=== PATIENT | female | born 1970 | race African-American/Black ===

== ENCOUNTER → 2016-12-13 | Outpatient (CLI) | payer OTHER ==
[2016-07-09 18:12] VITALS: BP 149/87
[~2016-12-13] MED LIST: ACET-704 PO; AMLO25PO; CYCL10TA2; FERR325C; FLUT100D; IBUP-1060 PO; OMEP40CA5
--- NOTE | 2016-12-13 12:39 | KCIC ---
PROCEDURE MRI cervical spine without contrast. HISTORY Cervical strain, elevator door closed on patient's left arm June 2016 with continued pain in the neck and left arm TECHNIQUE Sagittal and axial T2, sagittal T1, sagittal STIR images were acquired of the cervical spine. Contrast: None COMPARISON None FINDINGS There is motion degradation. Cervical cord caliber is within normal limits without obvious or expansile signal abnormality, limited evaluation for subtle signal change due to motion artifact. Cervical vertebral body stature and AP alignment are preserved. There is no significant abnormality of the cervical medullary junction, right cerebellar tonsil lower limits of normal. There is no significant focal marrow edema. Intervertebral disc spaces are overall adequate, mild disc desiccation greatest C4-5 to C6-7. C2-3: Spinal canal and the neural foramina are adequate. C3-C4: There is severe facet degenerative change bilaterally. Spinal canal and right neural foramina are adequate. There is left uncovertebral degenerative change, contributes to moderate narrowing of left neural foramen in combination with facet hypertrophic change. C4-C5: There is severe left facet hypertrophic change. Spinal canal and right neural foramen are adequate, mild to moderate narrowing of the left neural foramen. C5-C6: There is broad posterior bulge/protrusion, relatively greater in the lateral recesses bilaterally. Central canal is adequate 11 millimeters, very mild narrowing of the far lateral recesses. There is uncovertebral degenerative change bilaterally. There is mild to moderate left facet hypertrophic change. There is likely least mild narrowing of the neural foramina. C6-7: There is a shallow protrusion eccentric to the left lateral recess. There is [id number] left lateral recess stenosis. There is likely mild narrowing of the left neural foramen, right neural foramen overall adequate. C7-T1: Spinal canal and neural foramina are adequate. There is facet hypertrophic change greater on the right. IMPRESSION 1. Exam is degraded by motion. 2. There is mild to moderate narrowing of the far left lateral recess at C6-7 by protrusion, very mild narrowing of the lateral recesses at C5-C6. 3. Accurate evaluation of the neural foramina is somewhat limited due to motion, suspected neural foramina compromise greatest on the left at C3-4 and C4-5, to a lesser degree bilaterally at C5-C6 and on the left at C6-7. Facet and uncovertebral degenerative change contributes to neural foramina compromise. Electronically signed by: Dequan Escobedo MD (Dec 13, 2016 12:37:39)
== END | disposition home or self-care (01) ==
LOC: KCIC MRI 11:09
PROVIDERS: ATTEND Physical Medicine & Rehabilitation
DX: S16.1XXA Strain of muscle, fascia and tendon at neck level, initial encounter (principal)
CPT/HCPCS: 72141

== ENCOUNTER 2017-03-21 18:48 | Emergency (ER) | payer OTHER ==
[~2017-03-21] VITALS: Ht 175.3 cm; Wt 86.2 kg
[2017-03-21 19:28] VITALS: BP 148/76
[2017-03-21] MEDS ORDERED: FAMOTIDINE 20 MG TABLET. PO ONE (19:45)
[2017-03-21] MEDS ORDERED: HYDROcodone/APAP 5/325MG 1 TAB TABLET PO ONE (19:45)
[2017-03-21] MEDS ORDERED: DEXAMETHASONE SOD PHOS 20 MG/5 ML VIAL. IM ONE (19:45)
[2017-03-21] MEDS ORDERED: cefTRIAXone IM 250 MG VIAL IM ONE (19:45)
[2017-03-21] MEDS ORDERED: diphenhydrAMINE HCL 25 MG CAPSULE PO ONE (19:45)
[2017-03-21] MEDS ORDERED: PRED-220 PO (20:29)
[2017-03-21] MEDS ORDERED: CLIN150C14 PO (20:29)
--- NOTE | 2017-03-21 20:29 | PHYS DOC ---
Past Medical History Past Medical History: Asthma, Endometriosis, GERD, Hypertension, Other Additional Past Medical Histor: fibroids Past Surgical History: , Tubal ligation, Other Additional Past Surgical Histo: hernia repair Alcohol Use: None Drug Use: None Adult General Chief Complaint Chief Complaint: SORE THROAT HPI HPI Patient is a 46 year old female with history of hypertension and endometriosis asthma who presents today with multiple complaints. Patient is complaining of a rash that began a week ago after getting exposed to poison sabrina. She is also complaining of bilateral ear pain and sore throat and would like to be given Rocephin injection. She is also complaining of chronic left knee pain. Patient denies any trauma. Review of Systems Review of Systems Constitutional: Denies fever or chills [] Eyes: Denies change in visual acuity, redness, or eye pain [] HENT: Sore throat and bilateral ear pain Respiratory: Denies cough or shortness of breath [] Cardiovascular: No additional information not addressed in HPI [] GI: Denies abdominal pain, nausea, vomiting, bloody stools or diarrhea [] : Denies dysuria or hematuria [] Musculoskeletal: Chronic left knee pain Integument: rash Neurologic: Denies headache, focal weakness or sensory changes [] Endocrine: Denies polyuria or polydipsia [] Current Medications Current Medications Current Medications Medications (Trade) Dose Ordered Sig/Laura Start Time Stop Time Status Last Admin Dose Admin Acetaminophen/ Hydrocodone Bitart (Lortab 5/325) 1 tab 1X ONCE 03/21/17 19:45 03/21/17 19:46 DC 03/21/17 19:58 1 TAB Ceftriaxone Sodium (Rocephin Im) 250 mg 1X ONCE 03/21/17 19:45 03/21/17 19:46 DC 03/21/17 19:58 250 MG Dexamethasone Sodium Phosphate (Decadron) 10 mg 1X ONCE 03/21/17 19:45 03/21/17 19:46 DC 03/21/17 19:58 10 MG Diphenhydramine HCl (Benadryl) 25 mg 1X ONCE 03/21/17 19:45 03/21/17 19:46 DC 03/21/17 19:58 25 MG Famotidine (Pepcid) 20 mg 1X ONCE 03/21/17 19:45 03/21/17 19:46 DC 03/21/17 19:58 20 MG Allergies Allergies Allergies Coded Allergies Type Severity Reaction Last Updated Verified naproxen Allergy Intermediate "makes my heart hurt" 03/27/14 Yes naproxen sodium Allergy Intermediate "makes my heart hurt" 03/27/14 Yes Penicillins Allergy Unknown 03/27/14 Yes Sulfa (Sulfonamide Antibiotics) Allergy Unknown 03/27/14 Yes erythromycin base Allergy Unknown 03/27/14 Yes fluconazole Allergy Unknown 03/27/14 Yes tetracycline Allergy Unknown 03/27/14 Yes Physical Exam Physical Exam Constitutional: Well developed, well nourished, no acute distress, non-toxic appearance. [] HENT: Normocephalic, atraumatic, bilateral external ears normal, oropharynx moist, no oral exudates, nose normal. [] Bilateral TM are mildly injected. Eyes: PERRLA, EOMI, conjunctiva normal, no discharge. [] Neck: Normal range of motion, no tenderness, supple, no stridor. [] Cardiovascular:Heart rate regular rhythm, no murmur [] Lungs & Thorax: Bilateral breath sounds clear to auscultation [] Abdomen: Bowel sounds normal, soft, no tenderness, no masses, no pulsatile masses. [] Skin: upper tarso was noted for mild amount of erythematous papular rash. Back: No tenderness, no CVA tenderness. [] Extremities: Left knee with no obvious edema and obvious ecchymosis no tenderness on exam. Full range of motion. +2 left pedal pulse. Cap refill less than 2 seconds the left lower extremity. Negative Addy sign and negative Missy's sign negative anterior-posterior drawer sign to the left knee. Neurologic: Alert and oriented X 3, normal motor function, normal sensory function, no focal deficits noted. [] Psychologic: Affect normal, judgement normal, mood normal. [] Current Patient Data Vital Signs Vital Signs Date Time Temp Pulse Resp B/P (MAP) Pulse Ox O2 Delivery O2 Flow Rate FiO2 03/21/17 19:58 18 Room Air 03/21/17 19:28 98.6 90 99 98.6 EKG EKG [] Radiology/Procedures Radiology/Procedures [] Course & Med Decision Making Course & Med Decision Making Pertinent Labs and Imaging studies reviewed. (See chart for details) Patient is in the ED with multiple complaints including a rash from poison sabrina which she requested a steroid injection. She was given Decadron Pepcid and Benadryl. She also has ear infection which she requested Rocephin injection. She has chronic knee pain. I offered her one hydrocodone in the ED. She'll be discharged with tapered dose of prednisone, Benadryl and Pepcid and instructed to follow-up with her PCP. Azithromycin for ear infection and pharyngitis. Dragon Disclaimer Dragon Disclaimer This electronic medical record was generated, in whole or in part, using a voice recognition dictation system. Departure Departure Impression: Primary Impression: Chronic pain of left knee Additional Impressions: Pharyngitis, acute Otitis media Contact dermatitis Disposition: HOME, SELF-CARE Condition: STABLE Referrals: JOHN BELL MD (PCP) follow up with your doctor in one week Patient Instructions: Contact Dermatitis, [id number], Otitis Media, Adult Additional Instructions: You were seen for contact dermatitis rash, chronic knee pain and ear infection. You also had a sore throat. You were treated in the emergency room with Rocephin and Decadron injection. Take the prescribed medicines as ordered. Follow-up with your own doctor in one week. Scripts Miconazole Nitrate (MONISTAT 7) 44 Gm Cmb.pf.crm 44 GM VG DAILY, #7 EACH Prov: JELENA FRANCES APRN 03/21/17 Fluconazole (DIFLUCAN) 150 Mg Tablet 1 TAB PO ONCE, #1 TAB 1 Refill Prov: JELENA FRANCES APRN 03/21/17 Clindamycin Hcl (CLINDAMYCIN HCL) 150 Mg Capsule 3 CAP PO TID, #90 CAP Prov: JELENA FRANCES APRN 03/21/17 Prednisone (PREDNISONE) 10 Mg Tablet 10 MG PO UD for PREDNISONE TAPER, #39 TAB 0 Refills Take 3 tablets by mouth twice a day for 3 days, then take 2 tablets by mouth twice a day for 3 days, then take 1 tablet by mouth twice a day for 3 days, then take 1 tablet by mouth daily x 3 days, then stop. Prov: JELENA FRANCES APRN 03/21/17 Problem Qualifiers Additional Impressions: Pharyngitis, acute Pharyngitis/tonsillitis etiology: unspecified etiology Qualified Codes: J02.9 - Acute pharyngitis, unspecified Otitis media Otitis media type: other nonsuppurative Laterality: bilateral Chronicity: acute Recurrence: not specified as recurrent Qualified Codes: H65.193 - Other acute nonsuppurative otitis media, bilateral Contact dermatitis Contact dermatitis type: unspecified Contact dermatitis trigger: unspecified trigger Qualified Codes: L25.9 - Unspecified contact dermatitis, unspecified cause JELENA FRANCES APRN Mar 21, 2017 20:29
[2017-03-21] MEDS ORDERED: FLUC150T PO (20:37)
[2017-03-21] MEDS ORDERED: MICO44CM VG (20:40)
== END 2017-03-21 20:35 | disposition home or self-care (01) ==
LOC: ER 18:48
DX: G89.29 Other chronic pain (principal); M25.562 Pain in left knee; J02.9 Acute pharyngitis, unspecified; H66.93 Otitis media, unspecified, bilateral; L25.9 Unspecified contact dermatitis, unspecified cause; J45.909 Unspecified asthma, uncomplicated; K21.9 Gastro-esophageal reflux disease without esophagitis; I10 Essential (primary) hypertension; Z98.51 Tubal ligation status; Z98.890 Other specified postprocedural states
CPT/HCPCS: 96372; 99284; J0696; J1100; Q0163

== ENCOUNTER 2017-03-27 16:58 | Emergency (ER) | payer OTHER ==
[~2017-03-27] VITALS: Ht 175.3 cm; Wt 83.9 kg
[~2017-03-27 16:58] MED LIST changes: +CLIN150C14 PO; +FLUC150T PO; +MICO44CM VG; +PRED-220 PO
[2017-03-27 17:15] VITALS: BP 131/78
--- NOTE | 2017-03-27 18:31 | PHYS DOC ---
Past Medical History Past Medical History: Asthma, Endometriosis, GERD, Hypertension, Other Additional Past Medical Histor: fibroids Past Surgical History: , Tubal ligation, Other Additional Past Surgical Histo: hernia repair Alcohol Use: None Drug Use: None Adult General Chief Complaint Chief Complaint: LOWER EXT PAIN [facility] HPI Patient is a 46 year old female resents to the emergency department stating that she was seen here on the eighth. She states that she did not get her prescriptions filled. She states that she may of lost her prescriptions at home. She states that she is having increased knee pain and discomfort with swelling to the medial part of the left knee. Patient states that she has had increased difficulty with ambulation or that she is capable of ambulating around the department with no difficulty. Patient states that she needs to have her antibiotics filled for an upper respiratory infection in which she was provided with she was seen on the eighth. She states that she's been coughing up green colored sputum. Patient denies any fever, chills or any nausea vomiting. She is also complaining of bilateral ear pain and discomfort. Review of Systems Review of Systems Constitutional: Denies fever or chills [] Eyes: Denies change in visual acuity, redness, or eye pain [] HENT: Denies nasal congestion or sore throat. C/o bilateral ear pain Respiratory: cough denies shortness of breath [] Cardiovascular: No additional information not addressed in HPI [] GI: Denies abdominal pain, nausea, vomiting, bloody stools or diarrhea [] : Denies dysuria or hematuria [] Musculoskeletal: Denies back pain or joint pain [] Integument: Denies rash or skin lesions [] Neurologic: Denies headache, focal weakness or sensory changes [] Endocrine: Denies polyuria or polydipsia [] Allergies Allergies Allergies Coded Allergies Type Severity Reaction Last Updated Verified naproxen Allergy Intermediate "makes my heart hurt" 03/27/14 Yes naproxen sodium Allergy Intermediate "makes my heart hurt" 03/27/14 Yes Sulfa (Sulfonamide Antibiotics) Allergy Unknown 03/27/14 Yes erythromycin base Allergy Unknown 03/27/14 Yes fluconazole Allergy Unknown 03/27/14 Yes tetracycline Allergy Unknown 03/27/14 Yes Physical Exam Physical Exam Constitutional: Well developed, well nourished, no acute distress, non-toxic appearance. [] HENT: Normocephalic, atraumatic, bilateral external ears normal, oropharynx moist, no oral exudates, nose normal. Bilateral tympanic membranes appear to be normal. No redness was noted. Eyes: PERRLA, EOMI, conjunctiva normal, no discharge. [] Neck: Normal range of motion, no tenderness, supple, no stridor. [] Cardiovascular:Heart rate regular rhythm, no murmur [] Lungs & Thorax: Bilateral breath sounds clear to auscultation, equal chest expansion noted. Patient was noted to be able to talk in full sentences with no shortness of air difficulty breathing. No coughing noted while patient was in the room waiting for assessment or evaluation. Skin: Warm, dry, no erythema, no rash. [] Back: No tenderness, no CVA tenderness. [] Extremities: Left knee on the medial tenderness, she'll with swelling noted to the medial part of the left knee as well. Patient with tenderness noted to the posterior part of the knee. No cyanosis, no clubbing, ROM intact, no edema. Peripheral pulses 2+ cap refill brisk less than 2 seconds. Neurologic: Alert and oriented X 3, normal motor function, normal sensory function, no focal deficits noted. It was able to ambulate out of the department with a good steady gait no limping noted with the left leg. Psychologic: Affect normal, judgement normal, mood normal. [] Current Patient Data Vital Signs Vital Signs Date Time Temp Pulse Resp B/P (MAP) Pulse Ox O2 Delivery O2 Flow Rate FiO2 03/27/17 17:15 98.3 97 18 98 Room Air 98.3 EKG EKG [] Radiology/Procedures Radiology/Procedures [] Course & Med Decision Making Course & Med Decision Making Pertinent Labs and Imaging studies reviewed. (See chart for details) Attempted to provide assessment to the patient with patient noted to be out of her room and in the bathroom. Patient had ambulated to the bathroom with her about the use of her wheelchair which is sitting in the room. After patient had returned to the room the provider went in to assess the patient. Patient started off a conversation with the provider as been having increased knee pain and discomfort. She states that I am an descendent and that I him here because I am having pain and discomfort here I am not a drug seeker. Patient was informed that unless anything is broken every patient is treated the same across the board with nonsteroidal anti-inflammatories. Patient was instructed that we will provide her with a knee x-ray. She states I have an appointment with her primary care physician on Saturday and refuses to have a knee x-ray. She then states that I need to be treated for an upper respiratory infection. She states that she is having bilateral ear pain and discomfort. Assessment was completed with bilateral ears being normal. Patient states there is nowhere them I ears can be normal as I did not get any of my antibiotics filled. Explained to patient that ear infections can be considered a viral infection that they don't always need to have antibiotics to clear them. Patient's breath sounds were clear. After explaining to patient that we would get a chest x-ray she states that she is coughing up green to yellow color sputum patient states that the provider has a poor attitude she does not want a chest x-ray and she is leaving. She continues to state that she does not like her care here and proceeds to provide negative comments toward the provider. And then comes up to the nursing station and is asking for a comment form as she wants to provide negative comments to the provider as she does not feel that she was taking care of appropriately here in the emergency department. Patient left AGAINST MEDICAL ADVICE. After patient had left AGAINST MEDICAL ADVICE patient was K-trac to find that on 02/26 from her primary care physician she had had 90 tablets of hydrocodone filled as well as 240 tablets of tramadol filled. It appears that this is normally filled on a monthly basis since 05/2016. Dragon Disclaimer Dragon Disclaimer This electronic medical record was generated, in whole or in part, using a voice recognition dictation system. Departure Departure Impression: Primary Impression: Left against medical advice Disposition: AGAINST MEDICAL ADVICE Condition: STABLE Referrals: JOHN BELL MD (PCP) KIMBERLEY CARTER APRN Mar 27, 2017 18:30
== END 2017-03-27 18:15 | disposition left against medical advice (07) ==
LOC: ER 16:58
DX: M25.562 Pain in left knee (principal); H92.03 Otalgia, bilateral; R05 Cough; M79.89 Other specified soft tissue disorders; I10 Essential (primary) hypertension; J45.909 Unspecified asthma, uncomplicated; K21.9 Gastro-esophageal reflux disease without esophagitis; Z98.51 Tubal ligation status; Z88.2 Allergy status to sulfonamides; Z88.1 Allergy status to other antibiotic agents
CPT/HCPCS: 99281

== ENCOUNTER 2017-07-16 13:42 | Emergency (ER) | payer OTHER ==
[~2017-07-16] VITALS: Ht 172.7 cm; Wt 79.4 kg
--- NOTE | 2017-07-16 14:30 | PHYS DOC ---
Past Medical History Past Medical History: Asthma, Endometriosis, GERD, Hypertension, Other Additional Past Medical Histor: fibroids Past Surgical History: , Tubal ligation, Other Additional Past Surgical Histo: hernia, D&Cx3 Alcohol Use: None Drug Use: Marijuana Adult General Chief Complaint Chief Complaint: VAGINAL BLEEDING HPI HPI Patient is a 46 year old female who presents with vaginal bleeding. Patient reportedly has been bleeding for 8 days. She started her normal menstrual cycle last Saturday, had a Depo-Provera shot on Saturday and within the last 2 days has had significantly increased vaginal bleeding with abdominal cramping. Patient states she has a history of menorrhagia with anemia and required blood transfusions and a D&C in the past. She recently was on control pills prior to reinitiating the Depo-Provera this last week. She is attempted ibuprofen and Tylenol home without an troll of her symptoms. She states she feels weak and dizzy when she gets up. She does not have a primary environmental resource specialist. Review of Systems Review of Systems Constitutional: Denies fever or chills [] Eyes: Denies change in visual acuity, redness, or eye pain [] HENT: Denies nasal congestion or sore throat [] Respiratory: Denies cough or shortness of breath [] Cardiovascular: Per history of present illness GI: Deniesnausea, vomiting, bloody stools or diarrhea [] : Denies dysuria or hematuria [] Musculoskeletal: Denies back pain or joint pain [] Integument: Denies rash or skin lesions [] Neurologic: Denies headache, focal weakness or sensory changes [] Current Medications Current Medications Current Medications Medications (Trade) Dose Ordered Sig/Laura Start Time Stop Time Status Last Admin Dose Admin Acetaminophen/ Hydrocodone Bitart (Lortab 5/325) 1 tab 1X ONCE 07/16/17 15:45 07/16/17 15:46 DC 07/16/17 15:24 1 TAB Ketorolac Tromethamine (Toradol) 30 mg 1X ONCE 07/16/17 15:00 07/16/17 15:01 DC 07/16/17 14:46 30 MG Potassium Chloride (Klor-Con) 40 meq 1X ONCE 07/16/17 16:15 07/16/17 16:16 Allergies Allergies Allergies Coded Allergies Type Severity Reaction Last Updated Verified naproxen Allergy Intermediate "makes my heart hurt" 03/27/14 Yes naproxen sodium Allergy Intermediate "makes my heart hurt" 03/27/14 Yes Sulfa (Sulfonamide Antibiotics) Allergy Unknown 03/27/14 Yes erythromycin base Allergy Unknown 03/27/14 Yes fluconazole Allergy Unknown 03/27/14 Yes tetracycline Allergy Unknown 03/27/14 Yes Physical Exam Physical Exam Constitutional: Well developed, well nourished, mild acute distress secondary to pain I she picked up that nosebleed not to drink she'll, non-toxic appearance. [] HENT: Normocephalic, atraumatic, bilateral external ears normal, oropharynx moist, no oral exudates, nose normal. [] Eyes: PERRLA, EOMI, conjunctiva normal, no discharge. [] Neck: Normal range of motion, no tenderness, supple, no stridor. [] Cardiovascular:Heart rate tachycardic with regular rhythm, no murmur [] Lungs & Thorax: Bilateral breath sounds clear to auscultation, no wheeze or crackles Abdomen: Bowel sounds normal, soft, no tenderness, no masses, no pulsatile masses. : moderate vaginal bleeding, diffuse TTP, mild clots, closed cervix, CMT noted , no adnexal mass, no other discharge Skin: Warm, dry, no erythema, no rash. [] Back: No tenderness, no CVA tenderness. [] Extremities: No tenderness, no cyanosis, no clubbing, ROM intact, no edema. [] Neurologic: Alert and oriented X 3, normal motor function, normal sensory function, no focal deficits noted. [] Psychologic: Affect normal, judgement normal, mood normal. [] Current Patient Data Vital Signs Vital Signs Date Time Temp Pulse Resp B/P (MAP) Pulse Ox O2 Delivery O2 Flow Rate FiO2 07/16/17 15:24 20 Room Air 07/16/17 13:45 98.5 92 163/91 (115) 99 98.5 Lab Values Laboratory Tests Test 07/16/17 14:40 07/16/17 14:55 White Blood Count 11.0 x10^3/uL (4.0-11.0) Red Blood Count 4.14 x10^6/uL (3.50-5.40) Hemoglobin 10.6 g/dL (12.0-15.5) L Hematocrit 31.5 % (36.0-47.0) L Mean Corpuscular Volume 76 fL (79-100) L Mean Corpuscular Hemoglobin 26 pg (25-35) Mean Corpuscular Hemoglobin Concent 34 g/dL (31-37) Red Cell Distribution Width 21.0 % (11.5-14.5) H Platelet Count 369 x10^3/uL (140-400) Neutrophils (%) (Auto) 53 % (31-73) Lymphocytes (%) (Auto) 39 % (24-48) Monocytes (%) (Auto) 5 % (0-9) Eosinophils (%) (Auto) 3 % (0-3) Basophils (%) (Auto) 1 % (0-3) Neutrophils # (Auto) 5.8 x10^3uL (1.8-7.7) Lymphocytes # (Auto) 4.3 x10^3/uL (1.0-4.8) Monocytes # (Auto) 0.5 x10^3/uL (0.0-1.1) Eosinophils # (Auto) 0.3 x10^3/uL (0.0-0.7) Basophils # (Auto) 0.1 x10^3/uL (0.0-0.2) Platelet Estimate Pending Sodium Level 142 mmol/L (136-145) Potassium Level 2.8 mmol/L (3.5-5.1) *L Chloride Level 103 mmol/L (98-107) Carbon Dioxide Level 28 mmol/L (21-32) Anion Gap 11 (6-14) Blood Urea Nitrogen 12 mg/dL (7-20) Creatinine 0.7 mg/dL (0.6-1.0) Estimated GFR (Cockcroft-Gault) 109.0 Glucose Level 124 mg/dL (70-99) H Calcium Level 9.9 mg/dL (8.5-10.1) POC Urine HCG, Qualitative Hcg negative (Negative) Laboratory Tests 07/16/17 14:40 Laboratory Tests 07/16/17 14:40 EKG EKG [] Radiology/Procedures Radiology/Procedures [] Course & Med Decision Making Course & Med Decision Making Pertinent Labs and Imaging studies reviewed. (See chart for details) Labs/ua ordered, IV toradol given for pain. Hgb not significantly low. Pt has hypokalemia and PO KCL 40meq given. Explained to pt the need to f/u with CONTINUITY CLERK, referred to Dr. Adler. Pt dc'c with ethynodiol/ethinyl estradiol for her menorrhagia, ibuprofen and few norco, instructed not to drive or operate machinery, explained low potassium and diet she should follow, return precautions given. Dragon Disclaimer Dragon Disclaimer This electronic medical record was generated, in whole or in part, using a voice recognition dictation system. Departure Departure Impression: Primary Impression: Dysfunctional uterine bleeding Additional Impression: Hypokalemia Disposition: HOME, SELF-CARE Condition: STABLE Referrals: JOHN BELL MD (PCP) Scripts Hydrocodone/Apap 5-325 (NORCO 5-325 TABLET) 1 Each Tablet 1-2 EACH PO PRN Q6HRS Y for breakthrough pain, #10 as needed for pain Prov: GILL SALGADO MD 07/16/17 Ibuprofen (IBUPROFEN) 600 Mg Tablet 600 MG PO PRN Q6HRS Y for PAIN, #20 TAB take with food or milk Prov: GILL SALGADO MD 07/16/17 Ethynodiol D-Ethinyl Estradiol (ZOVIA 1-35E) 1 Each Tablet 1 TAB PO DAILY Y for uterine bleeding, #28 TAB 0 Refills Prov: GILL SALGADO MD 07/16/17 Problem Qualifiers GILL SALGADO MD Jul 16, 2017 14:30
[2017-07-16 14:52] LABS: BASO # 0.1 x10^3/uL (0.0-0.2); BASO % 1 % (0-3); EOS % 3 % (0-3); HEMATOCRIT 31.5 % (36.0-47.0); HEMOGLOBIN 10.6 g/dL (12.0-15.5); LYMPH # 4.3 x10^3/uL (1.0-4.8); LYMPH % 39 % (24-48); MEAN CORPUSCULAR HEMOGLOBIN 26 pg (25-35); MEAN CORPUSCULAR HGB CONC 34 g/dL (31-37); MEAN CORPUSCULAR VOLUME 76 fL (79-100); MONO % 5 % (0-9); NEUT % 53 % (31-73); PLATELET COUNT 369 x10^3/uL (140-400); RED BLOOD COUNT 4.14 x10^6/uL (3.50-5.40)
[2017-07-16 15:00] LABS: CALCIUM 9.9 mg/dL (8.5-10.1); CREATININE 0.7 mg/dL (0.6-1.0)
[2017-07-16] MEDS ORDERED: KETOROLAC 30 MG/ML INJ. IV ONE (15:00)
[2017-07-16 15:11] LABS: POTASSIUM 2.8 mmol/L (3.5-5.1)
[2017-07-16] MEDS ORDERED: HYDROcodone/APAP 5/325MG 1 TAB TABLET PO ONE (15:45)
[2017-07-16] MEDS ORDERED: IBUP-1007 PO (15:52)
[2017-07-16] MEDS ORDERED: HYDR-971 PO (15:52)
[2017-07-16] MEDS ORDERED: ETHY1TAB2 PO (15:52)
[2017-07-16 15:54] LABS: ANISOCYTOSIS MOD; PLT ESTIMATE ADEQUATE (ADEQUATE)
[2017-07-16 16:07] VITALS: BP 140/85
[2017-07-16] MEDS ORDERED: POTASSIUM CHLORIDE 20 MEQ TABLET.ER. PO ONE (16:15)
== END 2017-07-16 16:19 | disposition home or self-care (01) ==
LOC: ER 13:42
DX: N93.8 Other specified abnormal uterine and vaginal bleeding (principal); E87.6 Hypokalemia; K21.9 Gastro-esophageal reflux disease without esophagitis; J45.909 Unspecified asthma, uncomplicated; I10 Essential (primary) hypertension; Z98.51 Tubal ligation status; Z79.899 Other long term (current) drug therapy; Z88.8 Allergy status to other drugs, medicaments and biological substances; Z88.1 Allergy status to other antibiotic agents
CPT/HCPCS: 36415; 80048; 81025; 85025; 96374; 99284; J1885

== ENCOUNTER 2017-08-05 16:54 | Emergency (ER) | payer OTHER ==
[~2017-08-05] VITALS: Ht 175.3 cm; Wt 75.3 kg
[~2017-08-05 16:54] MED LIST changes: +ETHY1TAB2 PO; +HYDR-971 PO; +IBUP-1007 PO
[2017-08-05 17:05] VITALS: BP 128/81
--- NOTE | 2017-08-05 17:25 | PHYS DOC ---
Past Medical History Past Medical History: Asthma, Endometriosis, GERD, Hypertension, Other Additional Past Medical Histor: fibroids Past Surgical History: , Tubal ligation, Other Additional Past Surgical Histo: hernia, D&Cx3 Alcohol Use: None Drug Use: Marijuana Adult General Chief Complaint Chief Complaint: KNEE INJURY HPI HPI Patient is a 46 year old female with a history of endometriosis, hypertension, who presents today complaining of moderate left knee pain that began today. Patient states she was trying to get in her is CVA when she heat her knee on the SUV. Patient states the pain is worse on ambulation. The knee is already wrapped in an Teodoro wrap. Review of Systems Review of Systems Constitutional: Denies fever or chills [] Eyes: Denies change in visual acuity, redness, or eye pain [] HENT: Denies nasal congestion or sore throat [] Respiratory: Denies cough or shortness of breath [] Cardiovascular: No additional information not addressed in HPI [] GI: Denies abdominal pain, nausea, vomiting, bloody stools or diarrhea [] : Denies dysuria or hematuria [] Musculoskeletal: Left anterior knee pain Integument: Denies rash or skin lesions [] Neurologic: Denies headache, focal weakness or sensory changes [] Current Medications Current Medications Current Medications Medications (Trade) Dose Ordered Sig/Laura Start Time Stop Time Status Last Admin Dose Admin Acetaminophen/ Hydrocodone Bitart (Lortab 5/325) 2 tab 1X ONCE 08/05/17 17:45 08/05/17 17:46 DC 08/05/17 17:40 2 TAB Dexamethasone Sodium Phosphate (Decadron) 10 mg 1X ONCE 08/05/17 17:45 08/05/17 17:46 DC 08/05/17 17:41 10 MG Allergies Allergies Allergies Coded Allergies Type Severity Reaction Last Updated Verified naproxen Allergy Intermediate "makes my heart hurt" 03/27/14 Yes naproxen sodium Allergy Intermediate "makes my heart hurt" 03/27/14 Yes Sulfa (Sulfonamide Antibiotics) Allergy Unknown 03/27/14 Yes erythromycin base Allergy Unknown 03/27/14 Yes fluconazole Allergy Unknown 03/27/14 Yes tetracycline Allergy Unknown 03/27/14 Yes Physical Exam Physical Exam Constitutional: Well developed, well nourished, no acute distress, non-toxic appearance. [] HENT: Normocephalic, atraumatic, bilateral external ears normal, oropharynx moist, no oral exudates, nose normal. [] Eyes: PERRLA, EOMI, conjunctiva normal, no discharge. [] Neck: Normal range of motion, no tenderness, supple, no stridor. [] Cardiovascular:Heart rate regular rhythm, no murmur [] Lungs & Thorax: Bilateral breath sounds clear to auscultation [] Abdomen: Bowel sounds normal, soft, no tenderness, no masses, no pulsatile masses. [] Skin: Warm, dry, no erythema, no rash. [] Back: No tenderness, no CVA tenderness. [] Extremities: Left knee with no obvious deformity. Small amount of soft tissue swelling noted on the left knee. Tenderness on palpation of the anterior left knee. Full range of motion of the left knee, negative Addy sign and negative Missy's sign negative anterior-posterior drawer sign to the left knee. +2 left pedal pulse. Cap refill less than 2 seconds the left toes. Neurologic: Alert and oriented X 3, normal motor function, normal sensory function, no focal deficits noted. [] Psychologic: Affect normal, judgement normal, mood normal. [] Current Patient Data Vital Signs Vital Signs Date Time Temp Pulse Resp B/P (MAP) Pulse Ox O2 Delivery O2 Flow Rate FiO2 08/05/17 17:40 18 97 Room Air 08/05/17 17:05 98.0 96 98.0 EKG EKG [] Radiology/Procedures Radiology/Procedures [] Course & Med Decision Making Course & Med Decision Making Pertinent Labs and Imaging studies reviewed. (See chart for details) Patient is in the ED with complaints of left knee pain after she hit it. Left knee x-rays interpreted by Dr. Stern are negative for any acute findings. She already has an Teodoro wrap on her left knee. She was instructed to keep the Teodoro wrap on. Ice elevation encouraged. Discharged with Medrol Dosepak and Tylenol 3. She was asking for hydrocodone's. Informed patient I do not have any indication for giving her hydrocodone. She is allergic to NSAIDs. Informed her she can follow up with an orthopedic doctor which I provided if she wants anything stronger for pain. She requested to be treated for STDs. She is in the ED with a partner and states the source of her current STD is not the current partner and does not want the partner informed. She was given Rocephin and azithromycin and Flagyl. Encouraged her to contact all [facility] and let them know she was treated for STDs and ask them to seek treatment too. Sylwia Disclaimer Sylwia Disclaimer This electronic medical record was generated, in whole or in part, using a voice recognition dictation system. Departure Departure Impression: Primary Impression: Contusion of left knee Disposition: HOME, SELF-CARE Condition: STABLE Referrals: UNKNOWN PCP NAME (PCP) KENNETH LEI MD follow up in one week Patient Instructions: Contusion, [id number] Additional Instructions: You were seen for left knee contusion. Continue wearing the Teodoro wrap you have as tolerated. Ice and elevate the extremity. Follow-up with the provided orthopedic doctor in one week. Follow-up with your own doctor as well. Scripts Methylprednisolone (MEDROL) 4 Mg Tab.ds.pk 1 PKG PO UD, #1 PKG Prov: JELENA FRANCES APRN 08/05/17 Acetaminophen With Codeine (TYLENOL WITH CODEINE #3 TABLET) 1 Each Tablet 1 TAB PO PRN Q6HRS Y for PAIN, #10 TAB Prov: JELENA FRANCES APRN 08/05/17 Problem Qualifiers Primary Impression: Contusion of left knee Encounter type: initial encounter Qualified Codes: S80.02XA - Contusion of left knee, initial encounter JELENA FRANCES APRN Aug 05, 2017 17:25
[2017-08-05] MEDS ORDERED: HYDROcodone/APAP 5/325MG 1 TAB TABLET PO ONE (17:45)
[2017-08-05] MEDS ORDERED: DEXAMETHASONE SOD PHOS 20 MG/5 ML VIAL. IM ONE (17:45)
[2017-08-05] MEDS ORDERED: METH4TAB2 PO (17:53)
[2017-08-05] MEDS ORDERED: ACET-704 PO (17:53)
[2017-08-05] MEDS ORDERED: metroNIDAZOLE 500 MG TABLET PO ONE (18:15)
[2017-08-05] MEDS ORDERED: cefTRIAXone IM 250 MG VIAL IM ONE (18:15)
[2017-08-05] MEDS ORDERED: AZITHROMYCIN 250 MG TABLET. PO ONE (18:15)
--- NOTE | 2017-08-06 08:42 | RAD ---
Left knee, 4 views, 08/05/2017: History: Fall, pain There is moderate narrowing of the medial compartment of the knee joint with subchondral sclerosis and moderate marginal spurring. There are also moderate degenerative changes at the patellofemoral articulation. No acute fracture or dislocation is identified. There is a large joint effusion. There is subcutaneous edema anteriorly. IMPRESSION: 1. Moderate degenerative change. 2. Large knee joint effusion. 3. No acute bony abnormality is detected. If knee pain persists, follow-up MR scanning may be useful in excluding an occult fracture or internal derangement, considering the presence of a large joint effusion.
== END 2017-08-05 18:00 | disposition home or self-care (01) ==
LOC: ER 16:54
DX: S80.02XA Contusion of left knee, initial encounter (principal); J45.909 Unspecified asthma, uncomplicated; I10 Essential (primary) hypertension; K21.9 Gastro-esophageal reflux disease without esophagitis; Z98.51 Tubal ligation status; Z88.1 Allergy status to other antibiotic agents; Z88.2 Allergy status to sulfonamides; Z88.6 Allergy status to analgesic agent; Z88.8 Allergy status to other drugs, medicaments and biological substances; X58.XXXA Exposure to other specified factors, initial encounter; Y93.89 Activity, other specified; Y99.8 Other external cause status; Y92.89 Other specified places as the place of occurrence of the external cause
CPT/HCPCS: 73564; 96372; 99284; J0696; J1100; Q0144

== ENCOUNTER 2018-03-13 07:57 | Emergency (ER) | payer SELFPAY, OTHER ==
[2018-03-13 08:21] LABS: URINE HCG POC HCG NEGATIVE (Negative)
[2018-03-13 08:38] LABS: BILIRUBIN,URINE NEGATIVE (NEG); CLARITY,URINE CLEAR; COLOR,URINE YELLOW; GLUCOSE,URINE NEGATIVE (NEG); NITRITE,URINE POSITIVE (NEG); PH,URINE 6.5; PROTEIN,URINE 30 mg/dL (NEG-TRACE)
[2018-03-13] MEDS: IV NORMAL SALINE 1000ML BAG 1,000 ML IV (08:43)
[2018-03-13 08:53] LABS: ADD MAN DIFF? NO
[2018-03-13 08:56] LABS: BASO # 0.1 x10^3/uL (0.0-0.2); BASO % 1 % (0-3); EOS # 0.2 x10^3/uL (0.0-0.7); EOS % 2 % (0-3); HEMATOCRIT 28.6 % (36.0-47.0); LYMPH # 2.1 x10^3/uL (1.0-4.8); LYMPH % 18 % (24-48); MEAN CORPUSCULAR HEMOGLOBIN 28 pg (25-35); MEAN CORPUSCULAR HGB CONC 35 g/dL (31-37); MEAN CORPUSCULAR VOLUME 80 fL (79-100); MONO # 0.9 x10^3/uL (0.0-1.1); MONO % 7 % (0-9); NEUT # 8.7 x10^3uL (1.8-7.7); NEUT % 73 % (31-73); PLATELET COUNT 452 x10^3/uL (140-400); RED BLOOD COUNT 3.57 x10^6/uL (3.50-5.40); RED CELL DISTRIBUTION WIDTH 17.9 % (11.5-14.5); WHITE BLOOD COUNT 11.9 x10^3/uL (4.0-11.0)
[2018-03-13] MEDS: ONDANSETRON PF 4 MG/2 ML VIAL. IV (08:56)
[2018-03-13] MEDS: ACETAMINOPHEN 500 MG TABLET PO (08:56)
[2018-03-13 09:10] LABS: BACTERIA,URINE MANY /HPF (0-FEW); RBC,URINE 0 /HPF (0-2); SQUAMOUS EPITHELIAL CELL,UR MOD /LPF; WBC,URINE >40 /HPF (0-4)
[2018-03-13 09:11] LABS: ETHANOL < 10 mg/dL (0-10)
[2018-03-13 09:18] LABS: LACTIC ACID 0.6 mmol/L (0.4-2.0)
[2018-03-13 09:24] LABS: ALBUMIN 3.6 g/dL (3.4-5.0); ALBUMIN/GLOBULIN RATIO 0.8 (1.0-1.7); ALK PHOS 103 U/L (46-116); ALT (SGPT) 18 U/L (14-59); ANION GAP 10 (6-14); AST (SGOT) 14 U/L (15-37); BLOOD UREA NITROGEN 6 mg/dL (7-20); BUN/CREATININE RATIO 12 (6-20); CALCIUM 9.5 mg/dL (8.5-10.1); CARBON DIOXIDE 29 mmol/L (21-32); CHLORIDE 99 mmol/L (98-107); CREATININE 0.5 mg/dL (0.6-1.0); GLUCOSE 91 mg/dL (70-99); LIPASE 63 U/L (73-393); SODIUM 138 mmol/L (136-145); TOTAL BILIRUBIN 0.5 mg/dL (0.2-1.0); TOTAL PROTEIN 7.9 g/dL (6.4-8.2)
[2018-03-13 09:26] LABS: POTASSIUM 2.9 mmol/L (3.5-5.1)
[2018-03-13] MEDS: AZITHROMYCIN 250 MG TABLET. PO (09:36)
[2018-03-13] MEDS: metroNIDAZOLE 500 MG TABLET PO (09:36)
[2018-03-13] MEDS: POTASSIUM CHLORIDE 20 MEQ TABLET.ER. PO (09:38)
[2018-03-13 10:03] LABS: PROCALCITONIN 0.19 ng/mL (0.00-0.10)
[2018-03-13 10:08] LABS: AMPHETAMINE/METHAMPHETAMINE NEG (NEG); BARBITURATES NEG (NEG); BENZODIAZEPINES NEG (NEG); CANNABINOIDS POS (NEG); COCAINE POS (NEG); METHADONE NEG (NEG); OPIATES POS (NEG); PHENCYCLIDINE NEG (NEG)
[2018-03-13 10:09] LABS: ETHANOL, URINE NEG (NEG)
[2018-03-13 10:13] LABS: NEGATIVE OBC STREP NEG; POSITIVE OBC STREP POS
[2018-03-13] MEDS: KETOROLAC 30 MG/ML INJ. IV (10:22)
[2018-03-13] MEDS: methylPREDNISolone SOD SUCC PF 125 MG/2 ML VIAL. IV (10:22)
== END 2018-03-13 11:05 | disposition home or self-care (01) ==
LOC: ER 11:05
DX: N39.0 Urinary tract infection, site not specified (principal); E87.6 Hypokalemia; R21 Rash and other nonspecific skin eruption; H92.01 Otalgia, right ear; J45.909 Unspecified asthma, uncomplicated; K21.9 Gastro-esophageal reflux disease without esophagitis; I10 Essential (primary) hypertension; Z88.1 Allergy status to other antibiotic agents; Z88.8 Allergy status to other drugs, medicaments and biological substances
CPT/HCPCS: 36415; 71045; 80053; 80307; 81001; 81025; 83605; 83690; 84145; 85025; 87070; 87086; 87186; 87491; 87591; 87880; 96365; 96375; 99285-25; G0480; J0690; J1885; J2405; J2930; J7030; Q0144

== ENCOUNTER 2018-03-17 20:11 | Emergency (ER) | payer SELFPAY ==
[2018-03-17 20:24] LABS: BILIRUBIN,URINE NEGATIVE (NEG); CLARITY,URINE CLOUDY; COLOR,URINE YELLOW; GLUCOSE,URINE NEGATIVE (NEG); NITRITE,URINE NEGATIVE (NEG); PH,URINE 6.5; PROTEIN,URINE NEGATIVE (NEG-TRACE); UROBILINOGEN,URINE 0.2 mg/dL (0.2 mg/dL)
[2018-03-17 20:48] LABS: BACTERIA,URINE MOD /HPF (0-FEW); RBC,URINE 0 /HPF (0-2); SQUAMOUS EPITHELIAL CELL,UR MANY /LPF; YEAST,URINE PRESENT /HPF
[2018-03-17] MEDS: cefTRIAXone IM 1 GM VIAL IM ×2 (20:57→21:00)
== END 2018-03-17 21:10 | disposition home or self-care (01) ==
LOC: ER 20:11
DX: R30.0 Dysuria (principal); I10 Essential (primary) hypertension; Z98.51 Tubal ligation status; Z76.0 Encounter for issue of repeat prescription; Z90.89 Acquired absence of other organs
CPT/HCPCS: 81001; 96372; 99283; J0696

== ENCOUNTER 2018-04-23 16:09 | Emergency (ER) | payer SELFPAY ==
[2018-04-23 16:52] LABS: URINE HCG POC HCG NEGATIVE (Negative)
[2018-04-23 16:55] LABS: BILIRUBIN,URINE NEGATIVE (NEG); CLARITY,URINE CLEAR; COLOR,URINE YELLOW; GLUCOSE,URINE NEGATIVE (NEG); NITRITE,URINE NEGATIVE (NEG); PH,URINE 5.5; PROTEIN,URINE NEGATIVE (NEG-TRACE); UROBILINOGEN,URINE 0.2 mg/dL (0.2 mg/dL)
[2018-04-23 17:11] LABS: BACTERIA,URINE 0 /HPF (0-FEW); HYALINE CASTS, URINE MANY /HPF; RBC,URINE 0 /HPF (0-2); SQUAMOUS EPITHELIAL CELL,UR FEW /LPF
[2018-04-23] MEDS: AZITHROMYCIN 250 MG TABLET. PO (18:07)
[2018-04-23] MEDS: cefTRIAXone IM 250 MG VIAL IM (18:08)
[2018-04-23] MEDS: KETOROLAC 60 MG/2 ML INJ. IM (19:14)
[2018-04-23] MEDS: DEXAMETHASONE SOD PHOS 4 MG/ML VIAL IM (19:28)
[2018-04-24 15:31] LABS: CHLAMYDIA PROBE Negative (Negative); GC PROBE Negative (Negative)
== END 2018-04-23 19:45 | disposition home or self-care (01) ==
LOC: ER 16:09
DX: J06.9 Acute upper respiratory infection, unspecified (principal); N76.0 Acute vaginitis; B96.89 Other specified bacterial agents as the cause of diseases classified elsewhere; H92.03 Otalgia, bilateral; I10 Essential (primary) hypertension; Z98.51 Tubal ligation status; Z20.2 Contact with and (suspected) exposure to infections with a predominantly sexual mode of transmission; Z88.2 Allergy status to sulfonamides; Z88.1 Allergy status to other antibiotic agents; Z88.8 Allergy status to other drugs, medicaments and biological substances
CPT/HCPCS: 71046; 81001; 81025; 87086; 87491; 87591; 96372; 99285-25; J0696; J1100; J1885; Q0111; Q0144

== ENCOUNTER 2018-05-19 15:32 | Emergency (ER) | payer SELFPAY ==
[2018-05-19 17:01] LABS: BILIRUBIN,URINE NEGATIVE (NEG); CLARITY,URINE CLEAR; COLOR,URINE YELLOW; GLUCOSE,URINE NEGATIVE (NEG); NITRITE,URINE NEGATIVE (NEG); PROTEIN,URINE NEGATIVE (NEG-TRACE); UROBILINOGEN,URINE 0.2 mg/dL (0.2 mg/dL)
[2018-05-19 17:03] LABS: BARBITURATES NEG (NEG); BENZODIAZEPINES NEG (NEG); CANNABINOIDS POS (NEG); COCAINE NEG (NEG); METHADONE NEG (NEG); OPIATES POS (NEG); PHENCYCLIDINE NEG (NEG)
[2018-05-19 17:04] LABS: BACTERIA,URINE MANY /HPF (0-FEW); WBC,URINE >40 /HPF (0-4)
[2018-05-19 17:05] LABS: RBC,URINE OCC /HPF (0-2); SQUAMOUS EPITHELIAL CELL,UR FEW /LPF
[2018-05-19 17:07] LABS: AMPHETAMINE/METHAMPHETAMINE NEG (NEG); ETHANOL, URINE NEG (NEG)
[2018-05-19] MEDS: methylPREDNISolone SOD SUCC PF 125 MG/2 ML VIAL. IM (17:09)
[2018-05-19] MEDS: cefTRIAXone IM 1 GM VIAL IM (17:09)
[2018-05-19] MEDS: LIDOCAINE 1% PF 2 ML VIAL. INJ (17:09)
[2018-05-19] MEDS: diphenhydrAMINE HCL 25 MG CAPSULE PO (17:11)
[2018-05-19] MEDS: DOXYCYCLINE HYCLATE 100 MG TABLET PO (17:11)
[2018-05-19] MEDS: AZITHROMYCIN 250 MG TABLET. PO (17:11)
[2018-05-19] MEDS: HYDROcodone/APAP 7.5/325MG 1 TAB TABLET PO (17:12)
[2018-05-19] MEDS: metroNIDAZOLE 500 MG TABLET PO (17:38)
[2018-05-20 14:35] LABS: CHLAMYDIA PROBE Negative (Negative); GC PROBE Negative (Negative)
== END 2018-05-19 18:11 | disposition home or self-care (01) ==
LOC: ER 15:32
DX: N39.0 Urinary tract infection, site not specified (principal); N76.0 Acute vaginitis; B96.89 Other specified bacterial agents as the cause of diseases classified elsewhere; L25.9 Unspecified contact dermatitis, unspecified cause; K21.9 Gastro-esophageal reflux disease without esophagitis; I10 Essential (primary) hypertension; F17.210 Nicotine dependence, cigarettes, uncomplicated; Z20.2 Contact with and (suspected) exposure to infections with a predominantly sexual mode of transmission; Z90.89 Acquired absence of other organs; Z98.51 Tubal ligation status; Z88.2 Allergy status to sulfonamides; Z88.1 Allergy status to other antibiotic agents; Z88.5 Allergy status to narcotic agent; Z88.8 Allergy status to other drugs, medicaments and biological substances
CPT/HCPCS: 80307; 81001; 87491; 87591; 96372; 99284; J0696; J2930; Q0111; Q0144; Q0163

== ENCOUNTER 2018-06-10 16:50 | Emergency (ER) | payer SELFPAY ==
[~2018-06-10] VITALS: Ht 175.3 cm; Wt 79.4 kg
[~2018-06-10 16:50] MED LIST changes: +CEPH500T PO; +DOXY100T PO; +DOXY100T9 PO; +METH4TAB2 PO; +METR500T PO; +METR70GE14 VG; +MICO1KIT8 VG; +MICO45CR3 VG; +ONDA4TAB10 SL; +PRED50TA PO
[2018-06-10 17:27] LABS: BASO % 1 % (0-3); EOS # 0.1 x10^3/uL (0.0-0.7); EOS % 2 % (0-3); HEMATOCRIT 33.5 % (36.0-47.0); HEMOGLOBIN 11.5 g/dL (12.0-15.5); LYMPH # 1.2 x10^3/uL (1.0-4.8); LYMPH % 31 % (24-48); MEAN CORPUSCULAR HEMOGLOBIN 28 pg (25-35); MEAN CORPUSCULAR HGB CONC 34 g/dL (31-37); MEAN CORPUSCULAR VOLUME 82 fL (79-100); MONO # 0.3 x10^3/uL (0.0-1.1); MONO % 7 % (0-9); NEUT # 2.2 x10^3uL (1.8-7.7); NEUT % 58 % (31-73); PLATELET COUNT 352 x10^3/uL (140-400); RED BLOOD COUNT 4.09 x10^6/uL (3.50-5.40); RED CELL DISTRIBUTION WIDTH 20.4 % (11.5-14.5); WHITE BLOOD COUNT 3.8 x10^3/uL (4.0-11.0)
--- NOTE | 2018-06-10 17:33 | PHYS DOC ---
Past Medical History Past Medical History: Anemia, GERD, Hypertension Additional Past Medical Histor: endometreosis Past Surgical History: , Tonsillectomy, Tubal ligation Additional Past Surgical Histo: hernia, D&Cx3 Alcohol Use: None Drug Use: None Adult General Chief Complaint Chief Complaint: VAGINAL BLEEDING HPI HPI Patient is a 47 year old female , history of endometriosis presents to the ED complaining of vaginal bleeding 3 days. Patient states that started that she was spotting and then she noticed today that she was passing clots. States that she has some lower abdominal cramping and nausea. Rates the pain as 4 out of 10. History of similar episodes in the past. Denies vomiting, vaginal discharge, weakness, dizziness, syncope, chest pain, shortness of breath, neck pain, back pain, fever or headache. Review of Systems Review of Systems Constitutional: Denies fever or chills [] Eyes: Denies change in visual acuity, redness, or eye pain [] HENT: Denies nasal congestion or sore throat [] Respiratory: Denies cough or shortness of breath [] Cardiovascular: No additional information not addressed in HPI [] GI: Complains of abdominal pain and nausea. Denies vomiting, bloody stools or diarrhea [] : Complains of vaginal bleeding. Denies dysuria or hematuria [] Musculoskeletal: Denies back pain or joint pain [] Integument: Denies rash or skin lesions [] Neurologic: Denies headache, focal weakness or sensory changes [] All other systems were reviewed and found to be within normal limits, except as documented in this note. Current Medications Current Medications Current Medications Medications (Trade) Dose Ordered Sig/[facility] Start Time Stop Time Status Last Admin Dose Admin Fentanyl Citrate (Fentanyl 2ml Vial) 75 mcg 1X ONCE 06/10/18 18:00 06/10/18 18:09 DC 06/10/18 18:03 75 MCG Morphine Sulfate (Morphine Sulfate) 2 mg 1X ONCE 06/10/18 17:45 06/10/18 17:59 DC Ondansetron HCl (Zofran) 4 mg 1X ONCE 06/10/18 17:45 06/10/18 17:46 DC 06/10/18 17:55 4 MG Oxycodone/ Acetaminophen (Percocet 5/325) 1 tab STK-MED ONCE 06/10/18 20:26 06/10/18 20:29 DC Potassium Chloride (Klor-Con) 40 meq 1X ONCE 06/10/18 19:00 06/10/18 19:01 DC 06/10/18 19:46 40 MEQ Sodium Chloride 1,000 ml @ 1,000 mls/hr 1X ONCE 06/10/18 17:45 06/10/18 18:44 DC 06/10/18 17:55 1,000 MLS/HR Allergies Allergies Allergies Coded Allergies Type Severity Reaction Last Updated Verified naproxen Allergy Intermediate "makes my heart hurt" 03/27/14 Yes naproxen sodium Allergy Intermediate "makes my heart hurt" 03/27/14 Yes Sulfa (Sulfonamide Antibiotics) Allergy Unknown 03/27/14 Yes erythromycin base Allergy Unknown zithromax ok 08/05/17 Yes fluconazole Allergy Unknown 03/27/14 Yes tetracycline Allergy Unknown 03/27/14 Yes morphine Adverse Reaction Intermediate vomiting 06/10/18 Yes Physical Exam Physical Exam Constitutional: Well developed, well nourished, no acute distress, non-toxic appearance. [] HENT: Normocephalic, atraumatic Neck: Normal range of motion, no tenderness, supple, no stridor. [] Cardiovascular:Heart rate regular rhythm, no murmur [] Lungs & Thorax: Bilateral breath sounds clear to auscultation [] Abdomen: Bowel sounds normal, soft, no tenderness, no masses, no pulsatile masses. [] : Refused. Skin: Warm, dry, no erythema, no rash. [] Back: No tenderness, no CVA tenderness. [] Extremities: No tenderness, no cyanosis, no clubbing, ROM intact, no edema. [] Neurologic: Alert and oriented X 3, normal motor function, normal sensory function, no focal deficits noted. [] Psychologic: Affect normal, judgement normal, mood normal. [] Current Patient Data Vital Signs Vital Signs Date Time Temp Pulse Resp B/P (MAP) Pulse Ox O2 Delivery O2 Flow Rate FiO2 06/10/18 20:28 20 06/10/18 19:42 94 123/74 (90) 96 Room Air 06/10/18 16:56 98.8 98.8 Lab Values Laboratory Tests Test 06/10/18 17:00 06/10/18 18:48 White Blood Count 3.8 x10^3/uL (4.0-11.0) L Red Blood Count 4.09 x10^6/uL (3.50-5.40) Hemoglobin 11.5 g/dL (12.0-15.5) L Hematocrit 33.5 % (36.0-47.0) L Mean Corpuscular Volume 82 fL (79-100) Mean Corpuscular Hemoglobin 28 pg (25-35) Mean Corpuscular Hemoglobin Concent 34 g/dL (31-37) Red Cell Distribution Width 20.4 % (11.5-14.5) H Platelet Count 352 x10^3/uL (140-400) Neutrophils (%) (Auto) 58 % (31-73) Lymphocytes (%) (Auto) 31 % (24-48) Monocytes (%) (Auto) 7 % (0-9) Eosinophils (%) (Auto) 2 % (0-3) Basophils (%) (Auto) 1 % (0-3) Neutrophils # (Auto) 2.2 x10^3uL (1.8-7.7) Lymphocytes # (Auto) 1.2 x10^3/uL (1.0-4.8) Monocytes # (Auto) 0.3 x10^3/uL (0.0-1.1) Eosinophils # (Auto) 0.1 x10^3/uL (0.0-0.7) Basophils # (Auto) 0.0 x10^3/uL (0.0-0.2) Platelet Estimate Adequate (ADEQUATE) Sodium Level 137 mmol/L (136-145) Potassium Level 3.3 mmol/L (3.5-5.1) L Chloride Level 106 mmol/L (98-107) Carbon Dioxide Level 26 mmol/L (21-32) Anion Gap 5 (6-14) L Blood Urea Nitrogen 11 mg/dL (7-20) Creatinine 0.7 mg/dL (0.6-1.0) Estimated GFR (Cockcroft-Gault) 108.5 BUN/Creatinine Ratio 16 (6-20) Glucose Level 115 mg/dL (70-99) H Calcium Level 9.2 mg/dL (8.5-10.1) Total Bilirubin 0.2 mg/dL (0.2-1.0) Aspartate Amino Transferase (AST) 22 U/L (15-37) Alanine Aminotransferase (ALT) 29 U/L (14-59) Alkaline Phosphatase 95 U/L (46-116) Total Protein 7.4 g/dL (6.4-8.2) Albumin 3.5 g/dL (3.4-5.0) Albumin/Globulin Ratio 0.9 (1.0-1.7) L Lipase 112 U/L (73-393) Urine Collection Type U cath Urine Color Yellow Urine Clarity Clear Urine pH 6.0 Urine Specific Waldron 1.025 Urine Protein Negative mg/dL (NEG-TRACE) Urine Glucose (UA) Negative mg/dL (NEG) Urine Ketones (Stick) Negative mg/dL (NEG) Urine Blood Negative (NEG) Urine Nitrite Negative (NEG) Urine Bilirubin Negative (NEG) Urine Urobilinogen Dipstick 1.0 mg/dL (0.2 mg/dL) Urine Leukocyte Esterase Negative (NEG) Urine RBC 1-2 /HPF (0-2) Urine WBC Occ /HPF (0-4) Urine Squamous Epithelial Cells Mod /LPF Urine Bacteria 0 /HPF (0-FEW) Urine Mucus Marked /LPF Urine Test Negative (NEG) Laboratory Tests 06/10/18 17:00 Laboratory Tests 06/10/18 17:00 EKG EKG [] Radiology/Procedures Radiology/Procedures PROCEDURE: PELVIS COMPLETE Indication:HEAVY VAG BLEEDING TECHNIQUE: Grayscale, color Doppler and spectral waveform images of the pelvis obtained. COMPARISON:None FINDINGS: The cervix is within normal limits. Nabothian cysts. The uterus measures 11.0 x 6.0 x 5.7 cm (longitudinal, AP, transverse). The endometrial stripe measures 1.4 cm and is mildly thickened but vascularity. The left ovary measures 2.0 x 2.7 x 2.4 cm with a 1.4 cm dominant follicle or simple cyst. The left ovary demonstrates evidence of blood flow. 1.5 x 1.1 x 1.2 cm hypoechoic lesion is seen in the left ovary with internal low-level echoes. The right ovary measures 2.8 x 2.0 x 1.8 cm with a 1.5 x 1.3 x 1.2 cm hypoechoic lesion. The right ovary demonstrates evidence of blood flow. Heterogenous myometrium is seen with scattered vascularity. IMPRESSION: 1. Endometrium is thickened with vascularity. Findings may be secondary to endometrial hyperplasia or endometrial malignancy. Consider hysteroscopy. 2. Bilateral ovaries demonstrate evidence of blood flow with likely small hemorrhagic cyst in the left ovary. 3. Heterogenous myometrium with increased vascularity may be from adenomyosis or fibroid in the anterior uterine body not well delineated on this exam. Further evaluation with nonemergent MRI of the pelvis may be of additional benefit.[] Course & Med Decision Making Course & Med Decision Making Pertinent Labs and Imaging studies reviewed. (See chart for details) []Discussed lab and imaging findings with patient. Patient's bleeding improved in ED. States she is feeling much better. On reexamination, abdomen is soft nontender nondistended. No peritoneal signs. Tolerating by mouth. Discussed case with on-call CABLE SUPERVISOR, Dr. Adler. States patient can be started on Provera 10 mg tablets twice a day 10 days and follow-up in his office early next week. Discussed symptomatic treatment at home. Discussed the importance of follow-up. Provided contact information/education. Discussed reasons to return to the ED. Patient understands and agrees with plan. Dragon Disclaimer Dragon Disclaimer This electronic medical record was generated, in whole or in part, using a voice recognition dictation system. Departure Departure Impression: Primary Impression: Dysfunctional uterine bleeding Additional Impression: Endometrial hyperplasia Disposition: 01 HOME, SELF-CARE Condition: IMPROVED Referrals: NO PCP (PCP) ISIS ADLER Jr, MD Patient Instructions: Uterine Bleeding, Dysfunctional Scripts Oxycodone/Apap 5-325 (PERCOCET 5-325 MG TABLET) 1 Each Tablet 1 TAB PO BID for 4 Days, #8 TAB Prov: NAZ CHINO 06/10/18 Medroxyprogesterone Acetate (PROVERA) 10 Mg Tablet 1 TAB PO BID for 10 Days, #20 TAB Prov: NAZ CHINO 06/10/18 Problem Qualifiers NAZ CHINO Jun 10, 2018 17:33
[2018-06-10 17:44] LABS: CALCIUM 9.2 mg/dL (8.5-10.1); CREATININE 0.7 mg/dL (0.6-1.0); GFR 108.5; POTASSIUM 3.3 mmol/L (3.5-5.1)
[2018-06-10] MEDS ORDERED: ONDANSETRON PF 4 MG/2 ML VIAL. IV ONE (17:45)
[2018-06-10] MEDS ORDERED: IV NORMAL SALINE 1000ML BAG 1,000 ML IV ONE (17:45)
[2018-06-10] MEDS ORDERED: MORPHINE SULFATE 2 MG/ML VIAL. IV ONE (17:45)
[2018-06-10 17:50] LABS: ALBUMIN 3.5 g/dL (3.4-5.0); ALBUMIN/GLOBULIN RATIO 0.9 (1.0-1.7); TOTAL BILIRUBIN 0.2 mg/dL (0.2-1.0); TOTAL PROTEIN 7.4 g/dL (6.4-8.2)
[2018-06-10] MEDS ORDERED: fentaNYL PF VIAL 100 MCG/2 ML VIAL IV ONE (18:00)
[2018-06-10 18:55] LABS: BILIRUBIN,URINE NEGATIVE (NEG); CLARITY,URINE CLEAR; COLOR,URINE YELLOW; NITRITE,URINE NEGATIVE (NEG); PROTEIN,URINE NEGATIVE (NEG-TRACE)
[2018-06-10] MEDS ORDERED: POTASSIUM CHLORIDE 20 MEQ TABLET.ER. PO ONE (19:00)
[2018-06-10 19:06] LABS: U PREG PATIENT NEGATIVE (NEG)
[2018-06-10 19:11] LABS: BACTERIA,URINE 0 /HPF (0-FEW); SQUAMOUS EPITHELIAL CELL,UR MOD /LPF; WBC,URINE OCC /HPF (0-4)
[2018-06-10 19:35] LABS: PLT ESTIMATE ADEQUATE (ADEQUATE)
[2018-06-10 19:42] VITALS: BP 123/74
--- NOTE | 2018-06-10 19:48 | RAD ---
Indication:HEAVY VAG BLEEDING TECHNIQUE: Grayscale, color Doppler and spectral waveform images of the pelvis obtained. COMPARISON:None FINDINGS: The cervix is within normal limits. Nabothian cysts. The uterus measures 11.0 x 6.0 x 5.7 cm (longitudinal, AP, transverse). The endometrial stripe measures 1.4 cm and is mildly thickened but vascularity. The left ovary measures 2.0 x 2.7 x 2.4 cm with a 1.4 cm dominant follicle or simple cyst. The left ovary demonstrates evidence of blood flow. 1.5 x 1.1 x 1.2 cm hypoechoic lesion is seen in the left ovary with internal low-level echoes. The right ovary measures 2.8 x 2.0 x 1.8 cm with a 1.5 x 1.3 x 1.2 cm hypoechoic lesion. The right ovary demonstrates evidence of blood flow. Heterogenous myometrium is seen with scattered vascularity. IMPRESSION: 1. Endometrium is thickened with vascularity. Findings may be secondary to endometrial hyperplasia or endometrial malignancy. Consider hysteroscopy. 2. Bilateral ovaries demonstrate evidence of blood flow with likely small hemorrhagic cyst in the left ovary. 3. Heterogenous myometrium with increased vascularity may be from adenomyosis or fibroid in the anterior uterine body not well delineated on this exam. Further evaluation with nonemergent MRI of the pelvis may be of additional benefit. Electronically signed by: Jose Fisher DO (06/10/2018 7:45 PM) [facility]
[2018-06-10] MEDS ORDERED: MEDR10TA PO (20:15)
[2018-06-10] MEDS ORDERED: OXYC-323 PO (20:15)
[2018-06-10] MEDS ORDERED: oxyCODONE/APAP 5/325 1 TAB TABLET ONE (20:26)
[2018-06-10] MEDS ORDERED: oxyCODONE/APAP 5/325 1 TAB TABLET PO ONE (20:30)
== END 2018-06-10 20:29 | disposition home or self-care (01) ==
LOC: ER 16:50
DX: N93.8 Other specified abnormal uterine and vaginal bleeding (principal); N85.00 Endometrial hyperplasia, unspecified; K21.9 Gastro-esophageal reflux disease without esophagitis; I10 Essential (primary) hypertension; Z90.89 Acquired absence of other organs; Z88.2 Allergy status to sulfonamides; Z88.1 Allergy status to other antibiotic agents; Z88.8 Allergy status to other drugs, medicaments and biological substances
CPT/HCPCS: 36415; 76856; 80053; 81001; 81025; 83690; 85025; 87491; 87591; 96374; 96375; 99285; J2405; J3010; J7030

== ENCOUNTER 2018-06-10 20:41 | Emergency (ER) | payer SELFPAY ==
[~2018-06-10] VITALS: Ht 167.6 cm; Wt 79.4 kg
[~2018-06-10 20:41] MED LIST changes: +MEDR10TA PO; +OXYC-323 PO
[2018-06-10 20:44] VITALS: BP 136/90
[2018-06-10] MEDS ORDERED: AZITHROMYCIN 250 MG TABLET. PO ONE (20:45)
[2018-06-10] MEDS ORDERED: cefTRIAXone IM 250 MG VIAL IM ONE (20:45)
--- NOTE | 2018-06-10 20:51 | PHYS DOC ---
Past Medical History Past Medical History: Anemia, GERD, Hypertension Additional Past Medical Histor: endometreosis Past Surgical History: , Tonsillectomy, Tubal ligation Additional Past Surgical Histo: hernia, D&Cx3 Alcohol Use: None Drug Use: None Adult General Chief Complaint Chief Complaint: SEXUALLY TRANSMITTED DISEASE HPI HPI Patient is a 47 year old female whom presents to the ED requesting STD treatment. Patient seen in the ED earlier this evening by myself. States that she forgot to be treated for STDs. Patient states she has multiple sexual partners. Patient seen and evaluated for vaginal bleeding at previous visit. Same symptoms in the past. Patient placed on Provera and analgesics with follow- up for [employer] later this week. Denies dysuria, hematuria, vaginal discharge, weakness, dizziness, abdominal pain, chest pain, shortness of breath, fever, rash or conjunctivitis. Review of Systems Review of Systems Constitutional: Denies fever or chills [] Eyes: Denies change in visual acuity, redness, or eye pain [] HENT: Denies nasal congestion or sore throat [] Respiratory: Denies cough or shortness of breath [] Cardiovascular: No additional information not addressed in HPI [] GI: Denies abdominal pain, nausea, vomiting, bloody stools or diarrhea [] : Denies dysuria or hematuria [] Musculoskeletal: Denies back pain or joint pain [] Integument: Denies rash or skin lesions [] Neurologic: Denies headache, focal weakness or sensory changes [] All other systems were reviewed and found to be within normal limits, except as documented in this note. Current Medications Current Medications Current Medications Medications (Trade) Dose Ordered Sig/Laura Start Time Stop Time Status Last Admin Dose Admin Azithromycin (Zithromax) 1,000 mg 1X ONCE 06/10/18 20:45 06/10/18 20:46 DC 06/10/18 21:03 1,000 MG Ceftriaxone Sodium (Rocephin Im) 250 mg 1X ONCE 06/10/18 20:45 06/10/18 20:46 DC 06/10/18 21:03 250 MG Allergies Allergies Allergies Coded Allergies Type Severity Reaction Last Updated Verified naproxen Allergy Intermediate "makes my heart hurt" 03/27/14 Yes naproxen sodium Allergy Intermediate "makes my heart hurt" 03/27/14 Yes Sulfa (Sulfonamide Antibiotics) Allergy Unknown 03/27/14 Yes erythromycin base Allergy Unknown zithromax ok 08/05/17 Yes fluconazole Allergy Unknown 03/27/14 Yes tetracycline Allergy Unknown 03/27/14 Yes morphine Adverse Reaction Intermediate vomiting 06/10/18 Yes Physical Exam Physical Exam Constitutional: Well developed, well nourished, no acute distress, non-toxic appearance. [] HENT: Normocephalic, atraumatic Cardiovascular:Heart rate regular rhythm, no murmur [] Lungs & Thorax: Bilateral breath sounds clear to auscultation [] Abdomen: Bowel sounds normal, soft, no tenderness, no masses, no pulsatile masses. [] : Refused Skin: Warm, dry, no erythema, no rash. [] Back: No tenderness, no CVA tenderness. [] Extremities: No tenderness, no cyanosis, no clubbing, ROM intact, no edema. [] Neurologic: Alert and oriented X 3, normal motor function, normal sensory function, no focal deficits noted. [] Psychologic: Affect normal, judgement normal, mood normal. [] Current Patient Data Vital Signs Vital Signs Date Time Temp Pulse Resp B/P (MAP) Pulse Ox O2 Delivery O2 Flow Rate FiO2 06/10/18 20:44 98.8 96 20 136/90 (105) 99 Room Air 98.8 EKG EKG [] Radiology/Procedures Radiology/Procedures [] Course & Med Decision Making Course & Med Decision Making Pertinent Labs and Imaging studies reviewed. (See chart for details) []Patient refused pelvic exam. Patient requesting STD treatment. We'll treat with Rocephin and azithromycin in the ED. Discussed safe sex practice and follow -up STD testing. Discussed reasons to return to the ED. Patient understands and agrees with plan. Attending physician attestation: I was working at the time of this patient's ER visit and was available for consultation, but did not personally interview, examine, or directly take part in the patient's care. DO Sylwia Jimenes Disclaimer Sylwia Disclaimer This electronic medical record was generated, in whole or in part, using a voice recognition dictation system. Departure Departure Impression: Primary Impression: Concern about STD in female without diagnosis Disposition: 01 HOME, SELF-CARE Condition: STABLE Referrals: NO PCP (PCP) JOSE FRANCISCO DEWITT MD Patient Instructions: Sexually Transmitted Disease, [id number] NAZ CHINO Jun 10, 2018 20:51 IZABELLA PERES DO Jun 14, 2018 06:16
== END 2018-06-10 21:29 | disposition home or self-care (01) ==
LOC: ER 20:41
DX: Z11.3 Encounter for screening for infections with a predominantly sexual mode of transmission (principal); K21.9 Gastro-esophageal reflux disease without esophagitis; I10 Essential (primary) hypertension; Z90.89 Acquired absence of other organs; Z88.2 Allergy status to sulfonamides; Z88.1 Allergy status to other antibiotic agents; Z88.8 Allergy status to other drugs, medicaments and biological substances
CPT/HCPCS: 96372; 99283; J0696; Q0144

== ENCOUNTER 2018-10-10 16:01 | Emergency (ER) | payer OTHER ==
[~2018-10-10] VITALS: Ht 175.3 cm; Wt 79.4 kg
[~2018-10-10 16:01] MED LIST changes: +HYDR-3164 PO; -HYDR-971 PO; -OXYC-323 PO; +OXYC1TAB15 PO
[2018-10-10] MEDS ORDERED: HYDROcodone/APAP 5/325MG 1 TAB TABLET PO ONE ×2 (17:45→21:30)
[2018-10-10] MEDS ORDERED: cefTRIAXone IM 250 MG VIAL IM ONE (18:00)
[2018-10-10] MEDS ORDERED: metroNIDAZOLE 500 MG TABLET PO ONE (18:00)
[2018-10-10] MEDS ORDERED: AZITHROMYCIN 250 MG TABLET. PO ONE (18:00)
[2018-10-10] MEDS ORDERED: ONDANSETRON ODT 4 MG TAB.RAPDIS. PO ONE (18:00)
--- NOTE | 2018-10-10 22:55 | RAD ---
INDICATION: ER PATIENT. TRAUMA FALL TODAY. PAIN LATERAL LEFT KNEE JUST DISTAL TO THE JOINT. HX LEFT KNEE SURGERY. PRIOR XRAY. COMPARISON: July 2017 IMPRESSION: Left knee: 5 views obtained. Plate and screws at proximal tibia. Severe joint space narrowing as well as osteophyte formation which could be secondary to degenerative changes. Limited evaluation secondary to overlap of structures. Lucency in the cortex of the medial tibial metaphysis. Could be a prominent trabecula or secondary to old injury given the morphology unless there is point tenderness to suggest a acute component of fracture. Electronically signed by: Ludin Wick MD (10/10/2018 10:51 PM) [facility]
[2018-10-10 23:00] VITALS: BP 126/67
--- NOTE | 2018-10-11 01:25 | PHYS DOC ---
Past Medical History Past Medical History: Anemia, GERD, Hypertension Additional Past Medical Histor: endometreosis Past Surgical History: , Tonsillectomy, Tubal ligation Additional Past Surgical Histo: hernia, D&Cx3 Alcohol Use: None Drug Use: None Adult General Chief Complaint Chief Complaint: MECHANICAL FALL HPI HPI Patient is a 48 year old [f__sex] who presents with [] Review of Systems Review of Systems Constitutional: Denies fever or chills [] Eyes: Denies change in visual acuity, redness, or eye pain [] HENT: Denies nasal congestion or sore throat [] Respiratory: Denies cough or shortness of breath [] Cardiovascular: No additional information not addressed in HPI [] GI: Denies abdominal pain, nausea, vomiting, bloody stools or diarrhea [] : Denies dysuria or hematuria [] Musculoskeletal: Denies back pain or joint pain [] Integument: Denies rash or skin lesions [] Neurologic: Denies headache, focal weakness or sensory changes [] Endocrine: Denies polyuria or polydipsia [] All other systems were reviewed and found to be within normal limits, except as documented in this note. Current Medications Current Medications Current Medications Medications (Trade) Dose Ordered Sig/Laura Start Time Stop Time Status Last Admin Dose Admin Acetaminophen/ Hydrocodone Bitart (Lortab 5/325) 1 tab 1X ONCE 10/10/18 21:30 10/10/18 21:31 DC 10/10/18 21:56 1 TAB Azithromycin (Zithromax) 1,000 mg 1X ONCE 10/10/18 18:00 10/10/18 18:01 DC 10/10/18 18:41 1,000 MG Ceftriaxone Sodium (Rocephin Im) 250 mg 1X ONCE 10/10/18 18:00 10/10/18 18:01 DC 10/10/18 18:41 250 MG Metronidazole (Flagyl) 2,000 mg 1X ONCE 10/10/18 18:00 10/10/18 18:01 DC 10/10/18 18:42 2,000 MG Ondansetron HCl (Zofran Odt) 4 mg 1X ONCE 10/10/18 18:00 10/10/18 18:01 DC 10/10/18 18:00 4 MG Allergies Allergies Allergies Coded Allergies Type Severity Reaction Last Updated Verified naproxen Allergy Intermediate "makes my heart hurt" 03/27/14 Yes naproxen sodium Allergy Intermediate "makes my heart hurt" 03/27/14 Yes Sulfa (Sulfonamide Antibiotics) Allergy Unknown 03/27/14 Yes erythromycin base Allergy Unknown zithromax ok 08/05/17 Yes fluconazole Allergy Unknown 03/27/14 Yes tetracycline Allergy Unknown 03/27/14 Yes morphine Adverse Reaction Intermediate vomiting 06/10/18 Yes Physical Exam Physical Exam Constitutional: Well developed, well nourished, no acute distress, non-toxic appearance. [] HENT: Normocephalic, atraumatic, bilateral external ears normal, oropharynx moist, no oral exudates, nose normal. [] Eyes: PERRLA, EOMI, conjunctiva normal, no discharge. [] Neck: Normal range of motion, no tenderness, supple, no stridor. [] Cardiovascular:Heart rate regular rhythm, no murmur [] Lungs & Thorax: Bilateral breath sounds clear to auscultation [] Abdomen: Bowel sounds normal, soft, no tenderness, no masses, no pulsatile masses. [] Skin: Warm, dry, no erythema, no rash. [] Back: No tenderness, no CVA tenderness. [] Extremities: No tenderness, no cyanosis, no clubbing, ROM intact, no edema. [] Neurologic: Alert and oriented X 3, normal motor function, normal sensory function, no focal deficits noted. [] Psychologic: Affect normal, judgement normal, mood normal. [] Current Patient Data Vital Signs Vital Signs Date Time Temp Pulse Resp B/P (MAP) Pulse Ox O2 Delivery O2 Flow Rate FiO2 10/10/18 23:00 100 16 96 10/10/18 21:56 Room Air 10/10/18 17:30 97.8 169/92 (117) 97.8 EKG EKG [] Radiology/Procedures Radiology/Procedures [] Course & Med Decision Making Course & Med Decision Making Pertinent Labs and Imaging studies reviewed. (See chart for details) [] Dragon Disclaimer Dragon Disclaimer This electronic medical record was generated, in whole or in part, using a voice recognition dictation system. Departure Departure Impression: Primary Impression: Exposure to sexually transmitted disease (STD) Additional Impression: Chronic pain of left knee Disposition: HOME, SELF-CARE Condition: STABLE Referrals: Aileen SULLIVAN MD (PCP) Patient Instructions: Knee Pain, Sexually Transmitted Disease, [id number] Additional Instructions: Follow up with your orthopedic surgeon for recheck at an earliest available appointment. Problem Qualifiers WINSTON VIERA APRN Oct 11, 2018 01:25
== END 2018-10-10 23:40 | disposition home or self-care (01) ==
LOC: ER 16:01
DX: G89.29 Other chronic pain (principal); M25.562 Pain in left knee; K21.9 Gastro-esophageal reflux disease without esophagitis; I10 Essential (primary) hypertension; Z90.89 Acquired absence of other organs; Z20.2 Contact with and (suspected) exposure to infections with a predominantly sexual mode of transmission
CPT/HCPCS: 73562; 96372; 99284; J0696; Q0144; Q0162

== ENCOUNTER 2018-12-08 13:18 | Emergency (ER) | payer OTHER ==
[~2018-12-08] VITALS: Ht 162.6 cm; Wt 79.4 kg
[2018-12-08] MEDS ORDERED: IBUPROFEN 600 MG TABLET. PO ONE (14:15)
--- NOTE | 2018-12-08 14:44 | RAD ---
KNEE LEFT 3V History: 3 recent falls, previous knee surgery, swelling Comparison: October 10, 2018 Findings: 3 views left knee are submitted. There is again metallic fixation plate lateral proximal tibia stabilized by screws. There is again cannulated screws of the proximal tibia. Hardware is intact and unchanged in position. There is some subtle oblique lucency of the medial tibial plateau although similar in appearance. There is tricompartmental osteoarthritic change of the knee, again more severe narrowing of the medial compartment joint space. There is now small ossific body lateral to the lateral femoral condyle not seen previously. Impression: 1. There is again fixation hardware of the proximal tibia. There is similar subtle lucency of the medial tibial plateau which may be due to sequela of previous fracture, although appearance unchanged compared with previous September 2018 exam. There is now small ossific fragment lateral to the lateral femoral condyle which may be a more recent avulsion fracture fragment as not seen on previous exam. There is again tricompartmental osteoarthritic change of the knee. Electronically signed by: Russell Escobedo MD (12/08/2018 2:41 PM) [id number]
[2018-12-08 15:17] VITALS: BP 126/67
[2018-12-08 15:19] LABS: BILIRUBIN,URINE NEGATIVE (NEG); CLARITY,URINE CLEAR; COLOR,URINE YELLOW; NITRITE,URINE NEGATIVE (NEG); PH,URINE 5.5; PROTEIN,URINE NEGATIVE (NEG-TRACE); UROBILINOGEN,URINE 0.2 mg/dL (0.2 mg/dL)
[2018-12-08 15:29] LABS: BACTERIA,URINE 0 /HPF (0-FEW); RBC,URINE 0 /HPF (0-2); SQUAMOUS EPITHELIAL CELL,UR OCC /LPF; WBC,URINE 0 /HPF (0-4)
[2018-12-08] MEDS ORDERED: AZITHROMYCIN 250 MG TABLET. PO ONE (15:45)
[2018-12-08] MEDS ORDERED: cefTRIAXone IM 250 MG VIAL IM ONE (15:45)
[2018-12-08] MEDS ORDERED: metroNIDAZOLE 500 MG TABLET PO ONE (15:45)
[2018-12-08] MEDS ORDERED: HYDR-3164 PO (15:50)
--- NOTE | 2018-12-08 15:51 | PHYS DOC ---
Past Medical History Past Medical History: Anemia, GERD, Hypertension Additional Past Medical Histor: endometreosis Past Surgical History: , Tonsillectomy, Tubal ligation Additional Past Surgical Histo: hernia, D&Cx3 Alcohol Use: None Drug Use: None Adult General Chief Complaint Chief Complaint: KNEE INJURY HPI HPI 48-year-old female presents to ER with complaints of left knee pain after falling the past couple of days. Patient states last fall was this morning. Patient states she has chronic left knee pain and swelling and is supposed to walk with a walker however chooses to use a cane. Patient states she becomes unstable and has lost her balance in the past couple of days denying any other symptoms prior to fall. Patient states today she fell forward landed on knee. Pt denies striking her head or having any head, neck, or back pain. Patient denies any other injury during the fall. During initial conversation patient also would like to be checked for STDs as she has had yellow vaginal discharge and odor over the past few days which has gradually worsened. She denies any abnormal vaginal bleeding. She reports her LMP was middle of last month. Patient reports she has had unprotected sex and has been diagnosed in the past with BV. She denies fever. She reports she has had some burning with urination denies other urinary sxs. Patient reports she has chronic knee pain and has been out of her oxycodone for the past couple of weeks. She denies any ghro-[id number] medications prior to arrival for pain. Review of Systems Review of Systems Constitutional: Denies fever or chills [] Eyes: Denies change in visual acuity, redness, or eye pain [] HENT: Denies nasal congestion or sore throat [] Respiratory: Denies cough or shortness of breath [] Cardiovascular: No additional information not addressed in HPI [] GI: Denies abdominal pain, nausea, vomiting, bloody stools or diarrhea [] : Denies hematuria. Reports dysuria and yellowish vaginal discharge w/foul odor Musculoskeletal: Denies back pain. Reports lt knee pain Integument: Denies rash or skin lesions [] Neurologic: Denies headache, focal weakness or sensory changes [] Endocrine: Denies polyuria or polydipsia [] All other systems were reviewed and found to be within normal limits, except as documented in this note. Current Medications Current Medications Current Medications Medications (Trade) Dose Ordered Sig/Laura Start Time Stop Time Status Last Admin Dose Admin Azithromycin (Zithromax) 1,000 mg 1X ONCE 12/08/18 15:45 12/08/18 15:49 DC 12/08/18 15:45 1,000 MG Ceftriaxone Sodium (Rocephin Im) 250 mg 1X ONCE 12/08/18 15:45 12/08/18 15:49 DC 12/08/18 15:45 250 MG Ibuprofen (Motrin) 600 mg 1X ONCE 12/08/18 14:15 12/08/18 14:16 DC Metronidazole (Flagyl) 2,000 mg 1X ONCE 12/08/18 15:45 12/08/18 15:49 DC 12/08/18 15:45 2,000 MG Allergies Allergies Allergies Coded Allergies Type Severity Reaction Last Updated Verified Sulfa (Sulfonamide Antibiotics) Allergy Intermediate 02/17/19 Yes erythromycin base Allergy Intermediate zithromax ok 02/17/19 Yes fluconazole Allergy Intermediate 02/17/19 Yes tetracycline Allergy Intermediate 02/17/19 Yes codeine Adverse Reaction Intermediate Palpitations 02/17/19 Yes morphine Adverse Reaction Intermediate vomiting 06/10/18 Yes naproxen Adverse Reaction Intermediate "makes my heart hurt" 02/17/19 Yes naproxen sodium Adverse Reaction Intermediate "makes my heart hurt" 02/17/19 Yes Physical Exam Physical Exam Constitutional: Well developed, well nourished, no acute distress, non-toxic appearance. [] HENT: Normocephalic, atraumatic, bilateral external ears normal, oropharynx moist, no oral exudates, nose normal. [] Eyes: PERRLA, EOMI, conjunctiva normal, no discharge. [] Neck: Normal range of motion, no tenderness, supple, no stridor. [] Cardiovascular:Heart rate regular rhythm, no murmur [] Lungs & Thorax: Bilateral breath sounds clear to auscultation [] Abdomen: Bowel sounds normal, soft, no tenderness, no masses, no pulsatile masses. [] Skin: Warm, dry, no erythema, no rash. [] Back: No tenderness, no CVA tenderness. [] Extremities: no cyanosis, no clubbing, Neurologic: Alert and oriented X 3, normal motor function, normal sensory function, no focal deficits noted. [] Psychologic: Affect normal, judgement normal, mood normal. [] Pelvic Exam: [employer] present @ 1520 Abdomen: Nontender External Genitalia: Normal Skin- no rash/lesions Speculum: Foul vaginal odor prior to speculum exam- speculum exam revealed pt had multiple balls of toilet paper (golf ball size) in vaginal vault. While waiting for RN to get forceps pt removed 1 of them herself. Speculum reinserted and 2 additional toilet paper balls were removed. Copious amts of thick yellow discharge w/foul odor in vaginal vault- cervix closed. Vaginal vault erythematous without lesions. Bimanual: No CMT tenderness- no palp. adnexal masses or tenderness. Current Patient Data Vital Signs Lab Values Laboratory Tests Test 12/08/18 14:50 12/08/18 15:04 12/08/18 15:17 Urine Collection Type Void Urine Color Yellow Urine Clarity Clear Urine pH 5.5 Urine Specific [place] 1.010 Urine Protein Negative mg/dL (NEG-TRACE) Urine Glucose (UA) Negative mg/dL (NEG) Urine Ketones (Stick) Negative mg/dL (NEG) Urine Blood Negative (NEG) Urine Nitrite Negative (NEG) Urine Bilirubin Negative (NEG) Urine Urobilinogen Dipstick 0.2 mg/dL (0.2 mg/dL) Urine Leukocyte Esterase Negative (NEG) Urine RBC 0 /HPF (0-2) Urine WBC 0 /HPF (0-4) Urine Squamous Epithelial Cells Occ /LPF Urine Bacteria 0 /HPF (0-FEW) Urine Mucus Slight /LPF POC Urine HCG, Qualitative Hcg negative (Negative) Chlamydia DNA Probe Negative (Negative) Neisseria gonorrhoeae DNA Probe Negative (Negative) Microbiology 12/08/18 Wet Prep - Final, Complete EKG EKG [] Radiology/Procedures Radiology/Procedures PROCEDURE: KNEE LEFT 3V KNEE LEFT 3V History: 3 recent falls, previous knee surgery, swelling Comparison: October 10, 2018 Findings: 3 views left knee are submitted. There is again metallic fixation plate lateral proximal tibia stabilized by screws. There is again cannulated screws of the proximal tibia. Hardware is intact and unchanged in position. There is some subtle oblique lucency of the medial tibial plateau although similar in appearance. There is tricompartmental osteoarthritic change of the knee, again more severe narrowing of the medial compartment joint space. There is now small ossific body lateral to the lateral femoral condyle not seen previously. Impression: 1. There is again fixation hardware of the proximal tibia. There is similar subtle lucency of the medial tibial plateau which may be due to sequela of previous fracture, although appearance unchanged compared with previous September 2018 exam. There is now small ossific fragment lateral to the lateral femoral condyle which may be a more recent avulsion fracture fragment as not seen on previous exam. There is again tricompartmental osteoarthritic change of the knee. Electronically signed by: Anthony Conrad MD (12/08/2018 2:41 PM) [id number] DICTATED and SIGNED BY: ANTHONY CONRAD MD DATE: 12/08/18 1438 Course & Med Decision Making Course & Med Decision Making Pertinent Labs and Imaging studies reviewed. (See chart for details) Pt was evaluated in the ER for c/o fall and reinjury to lt knee as she has chronic lt knee pain- xray was obtained with report of "some subtle oblique lucency of the medial tibial plateau although similar in appearance. There is tricompartmental osteoarthritic change of the knee, again more severe narrowing of the medial compartment joint space. There is now small ossific body lateral to the lateral femoral condyle not seen previously". This was discussed w/pt along with need for her to f/u with orthopedic doctor. Discussed plans for nacho wrap/knee immobilizer- crutches offered and pt didn't want crutches. She has cane which she prefers to use. Pt remained PMS intact in lt LE. Pt had drug seeking behavior multiple times asking for narcotic pain med. as she has been out for weeks. Pt was provided with dose of Ibuprofen. Pt during initial exam reported she was having vag. discharge w/foul odor along with dysuria. UA obtained neg. for infection w/neg. UCG. Pelvic exam complete and GC/Chlam. results pending at time of d/c. Pt was found to have mult. balls of toilet paper in her vagina- she reported she was having so much discharge she had putting toilet paper into her vagina to slow the discharge and forgot they were in there. Pt reports she had been with multiple partners and had unprotected sex- so prophylactic tx provided with Rocephin/Azithromycin and Flagyl given for BV with pelvic findings. Education provided on safe sex and avoiding insertion of items into vagina. Will provide community clinic and orthopedic referral info w/discharge paperwork. Pt advised on need to f/u on her test results in 2-3 days and need for f/u with ortho. Education provided on s&s to return to ER for and d/c instructions were discussed. Otison Disclaimer Dragon Disclaimer This electronic medical record was generated, in whole or in part, using a voice recognition dictation system. Departure Departure Impression: Primary Impression: Concern about STD in female without diagnosis Additional Impressions: Bacterial vaginosis Left knee injury Disposition: HOME, SELF-CARE Condition: STABLE Referrals: Aileen SULLIVAN MD (PCP) DYLAN LEW MD Patient Instructions: Bacterial Vaginosis, Knee Immobilization, Knee Pain, Safe Sex, Sexually Transmitted Disease, [id number] Additional Instructions: Use a walker to stabilize herself to prevent falls. Follow-up with your primary care physician for reevaluation and further care. Call as soon as possible to schedule appointment with orthopedic doctor for reevaluation and further care. Ibuprofen as directed on container for pain control as needed. Follow-up on your STD tests in 2-3 days for results. Scripts Hydrocodone/Apap 5-325 (NORCO 5-325 TABLET) 1 Each Tablet 1 TAB PO PRN Q6HRS PRN for PAIN, #6 TAB 0 Refills Prov: GOYO MCQUEEN APRN 12/08/18 Problem Qualifiers GOYO MCQUEEN APRN Dec 08, 2018 15:51
[2018-12-09 13:26] LABS: GC PROBE Negative (Negative)
== END 2018-12-08 16:22 | disposition home or self-care (01) ==
LOC: ER 13:18
DX: S89.92XA Unspecified injury of left lower leg, initial encounter (principal); N76.0 Acute vaginitis; B96.89 Other specified bacterial agents as the cause of diseases classified elsewhere; Z20.2 Contact with and (suspected) exposure to infections with a predominantly sexual mode of transmission; G89.29 Other chronic pain; I10 Essential (primary) hypertension; K21.9 Gastro-esophageal reflux disease without esophagitis; Z98.51 Tubal ligation status; Z98.890 Other specified postprocedural states; Z88.2 Allergy status to sulfonamides; Z88.1 Allergy status to other antibiotic agents; Z88.5 Allergy status to narcotic agent; Z88.8 Allergy status to other drugs, medicaments and biological substances; W18.39XA Other fall on same level, initial encounter; Y93.89 Activity, other specified; Y92.89 Other specified places as the place of occurrence of the external cause; Y99.8 Other external cause status
CPT/HCPCS: 73562; 81001; 81025; 87491; 87591; 96372; 99284; J0696; Q0111; Q0144

== ENCOUNTER 2019-02-17 16:18 | Emergency (ER) | payer OTHER ==
[~2019-02-17] VITALS: Ht 175.3 cm; Wt 89.4 kg
[2019-02-17 17:40] VITALS: BP 132/79
[2019-02-17] MEDS ORDERED: DEXAMETHASONE 4 MG TABLET PO ONE (19:00)
[2019-02-17] MEDS ORDERED: cefTRIAXone IM 250 MG VIAL IM ONE (19:00)
[2019-02-17] MEDS ORDERED: AZITHROMYCIN 250 MG TABLET. PO ONE (19:00)
--- NOTE | 2019-02-17 19:30 | RAD ---
EXAM: Chest, 2 views. HISTORY: Cough. COMPARISON: 04/23/2018 FINDINGS: 2 views of the chest are obtained. There is no infiltrate, pleural effusion or pneumothorax. The heart is normal in size. IMPRESSION: No acute pulmonary finding. Electronically signed by: Nai Burkett MD (02/17/2019 7:28 PM) [facility]
[2019-02-17] MEDS ORDERED: IBUPROFEN 200 MG TABLET. PO ONE (19:45)
--- NOTE | 2019-02-17 20:28 | RAD ---
EXAM: Pelvic sonogram. HISTORY: Right adnexal pain. TECHNIQUE: Transabdominal and transvaginal sonographic imaging of the pelvis was performed. COMPARISON: 06/10/2018. FINDINGS: The uterus measures 8.8 x 5.2 x 4.7 cm. The myometrium is diffusely heterogeneous. No discrete lesion such as a fibroid is seen. The endometrial stripe measures 4.9 mm in thickness. The ovaries are normal in size and demonstrate normal blood flow. There are multiple ovarian follicles with a dominant right ovarian follicle measuring 9 mm. There are few adjacent right ovarian calcifications. There is no pelvic free fluid. IMPRESSION: 1. Diffusely heterogeneous myometrium without a discrete lesion such as a fibroid. The uterus is normal in size. 2. Dominant right ovarian follicle measuring 9 mm. There are few adjacent nonspecific ovarian or paraovarian calcifications. Electronically signed by: Nai Burkett MD (02/17/2019 8:25 PM) [facility]
[2019-02-17] MEDS ORDERED: PRED20TA PO (20:54)
[2019-02-17] MEDS ORDERED: ALBU2.5V8 INH (20:54)
[2019-02-17] MEDS ORDERED: METR500T PO (20:54)
--- NOTE | 2019-02-17 20:54 | PHYS DOC ---
Past Medical History Past Medical History: Anemia, Asthma, GERD, Hypertension Additional Past Medical Histor: endometreosis Past Surgical History: , Tonsillectomy, Tubal ligation Additional Past Surgical Histo: hernia, D&c x's 3, Right ankle, left knee Alcohol Use: None Drug Use: None Adult General Chief Complaint Chief Complaint: MULTIPLE COMPLAINTS HPI HPI Patient is a 48 year old [f__sex] who presents with [] Review of Systems Review of Systems Constitutional: Denies fever or chills [] Eyes: Denies change in visual acuity, redness, or eye pain [] HENT: Denies nasal congestion or sore throat [] Respiratory: Denies cough or shortness of breath [] Cardiovascular: No additional information not addressed in HPI [] GI: Denies abdominal pain, nausea, vomiting, bloody stools or diarrhea [] : Denies dysuria or hematuria [] Musculoskeletal: Denies back pain or joint pain [] Integument: Denies rash or skin lesions [] Neurologic: Denies headache, focal weakness or sensory changes [] Endocrine: Denies polyuria or polydipsia [] All other systems were reviewed and found to be within normal limits, except as documented in this note. Current Medications Current Medications Current Medications Medications (Trade) Dose Ordered Sig/Laura Start Time Stop Time Status Last Admin Dose Admin Azithromycin (Zithromax) 1,000 mg 1X ONCE 02/17/19 19:00 02/17/19 19:01 DC 02/17/19 19:12 1,000 MG Ceftriaxone Sodium (Rocephin Im) 250 mg 1X ONCE 02/17/19 19:00 02/17/19 19:01 DC 02/17/19 19:15 250 MG Dexamethasone (Decadron) 10 mg 1X ONCE 02/17/19 19:00 02/17/19 19:01 DC 02/17/19 19:12 10 MG Ibuprofen (Motrin) 600 mg 1X ONCE 02/17/19 19:45 02/17/19 19:46 DC 02/17/19 19:52 600 MG Allergies Allergies Allergies Coded Allergies Type Severity Reaction Last Updated Verified Sulfa (Sulfonamide Antibiotics) Allergy Intermediate 02/17/19 Yes erythromycin base Allergy Intermediate zithromax ok 02/17/19 Yes fluconazole Allergy Intermediate 02/17/19 Yes tetracycline Allergy Intermediate 02/17/19 Yes codeine Adverse Reaction Intermediate Palpitations 02/17/19 Yes morphine Adverse Reaction Intermediate vomiting 06/10/18 Yes naproxen Adverse Reaction Intermediate "makes my heart hurt" 02/17/19 Yes naproxen sodium Adverse Reaction Intermediate "makes my heart hurt" 02/17/19 Yes Physical Exam Physical Exam Constitutional: Well developed, well nourished, no acute distress, non-toxic appearance. [] HENT: Normocephalic, atraumatic, bilateral external ears normal, oropharynx moist, no oral exudates, nose normal. [] Eyes: PERRLA, EOMI, conjunctiva normal, no discharge. [] Neck: Normal range of motion, no tenderness, supple, no stridor. [] Cardiovascular:Heart rate regular rhythm, no murmur [] Lungs & Thorax: Bilateral breath sounds clear to auscultation [] Abdomen: Bowel sounds normal, soft, no tenderness, no masses, no pulsatile masses. [] Skin: Warm, dry, no erythema, no rash. [] Back: No tenderness, no CVA tenderness. [] Extremities: No tenderness, no cyanosis, no clubbing, ROM intact, no edema. [] Neurologic: Alert and oriented X 3, normal motor function, normal sensory function, no focal deficits noted. [] Psychologic: Affect normal, judgement normal, mood normal. [] Current Patient Data Vital Signs Vital Signs Date Time Temp Pulse Resp B/P (MAP) Pulse Ox O2 Delivery O2 Flow Rate FiO2 02/17/19 17:40 98.2 98 20 132/79 (96) 98 Room Air 98.2 Lab Values Microbiology 02/17/19 Wet Prep - Final, Complete EKG EKG [] Radiology/Procedures Radiology/Procedures [] Course & Med Decision Making Course & Med Decision Making Pertinent Labs and Imaging studies reviewed. (See chart for details) [] Dragon Disclaimer Dragon Disclaimer This electronic medical record was generated, in whole or in part, using a voice recognition dictation system. Departure Departure Impression: Primary Impression: Bronchitis Additional Impressions: Vaginal discharge Bacterial vaginosis Concern about STD in female without diagnosis Disposition: 01 HOME, SELF-CARE Condition: STABLE Referrals: Aileen SULLIVAN MD (PCP) ISIS HUNG Jr, MD Patient Instructions: Acute Bronchitis, Gqpt-et-Pggh, Bacterial Vaginosis, [id number], Sexually Transmitted Disease, Kory-pl-Icek Scripts Miconazole Nitrate (MONISTAT 1) 1 Each Kit 1 EACH VG 1X, #1 EACH Prov: JOSE FRANCISCO MAYERS DO 02/17/19 Nystatin/Triamcin (NYSTATIN-TRIAMCINOLONE CREAM) 15 Gm Cream..g. 1 MARIANO TP BID PRN for RASH, #15 GM Prov: JOSE FRANCISCO MAYERS DO 02/17/19 Albuterol Sulfate (PROAIR HFA INHALER) 8.5 Gm Hfa.aer.ad 1 PUFF INH PRN Q6HRS PRN for WHEEZING, #1 INHALER 0 Refills Prov: JOSE FRANCISCO MAYERS DO 02/17/19 Prednisone (PREDNISONE) 20 Mg Tablet 2 TAB PO DAILY, #8 TAB Start this medication tomorrow, 02/18/19 Prov: JOSE FRANCISCO MAYERS DO 02/17/19 Metronidazole (FLAGYL) 500 Mg Tablet 500 MG PO BID for Vaginosis for 7 Days, #14 TAB Prov: JOSE FRANCISCO MAYERS DO 02/17/19 Problem Qualifiers JOSE FRANCISCO MAYERS DO February 17, 2019 20:54
[2019-02-17] MEDS ORDERED: NYST15CR2 TP (21:02)
[2019-02-17] MEDS ORDERED: MICO1KIT61 VG (21:53)
[2019-02-19 14:13] LABS: GC PROBE Negative (Negative)
== END 2019-02-17 21:20 | disposition home or self-care (01) ==
LOC: ER 16:18
DX: N76.0 Acute vaginitis (principal); B96.89 Other specified bacterial agents as the cause of diseases classified elsewhere; Z20.2 Contact with and (suspected) exposure to infections with a predominantly sexual mode of transmission; J40 Bronchitis, not specified as acute or chronic; K21.9 Gastro-esophageal reflux disease without esophagitis; J45.909 Unspecified asthma, uncomplicated; I10 Essential (primary) hypertension; Z98.51 Tubal ligation status; Z98.890 Other specified postprocedural states; Z88.1 Allergy status to other antibiotic agents; Z88.2 Allergy status to sulfonamides; Z88.5 Allergy status to narcotic agent; Z88.8 Allergy status to other drugs, medicaments and biological substances
CPT/HCPCS: 71046; 76830; 76856; 87491; 87591; 96372; 99285; J0696; J8540; Q0111; Q0144

== ENCOUNTER 2019-05-08 10:11 | Emergency (ER) | payer SELFPAY ==
[~2019-05-08] VITALS: Ht 175.3 cm; Wt 81.6 kg
[~2019-05-08 10:11] MED LIST changes: +ALBU2.5V8 INH; +MICO1KIT61 VG; +NYST15CR2 TP; +PRED20TA PO
[2019-05-08 10:42] VITALS: BP 142/88
[2019-05-08 10:59] LABS: BILIRUBIN,URINE NEGATIVE (NEG); CLARITY,URINE CLEAR; COLOR,URINE YELLOW; NITRITE,URINE NEGATIVE (NEG); PROTEIN,URINE NEGATIVE (NEG-TRACE); UROBILINOGEN,URINE 0.2 mg/dL (0.2 mg/dL)
[2019-05-08 11:15] LABS: BACTERIA,URINE 0 /HPF (0-FEW); WBC,URINE 0 /HPF (0-4)
--- NOTE | 2019-05-08 11:28 | PHYS DOC ---
Past Medical History Past Medical History: Anemia, Asthma, GERD, Hypertension Additional Past Medical Histor: endometreosis Past Surgical History: , Tonsillectomy, Tubal ligation Additional Past Surgical Histo: hernia, D&c x's 3, Right ankle, left knee Alcohol Use: None Drug Use: None Adult General Chief Complaint Chief Complaint: SEXUALLY TRANSMITTED DISEASE HPI HPI Patient is a 48 year old AA female who presents to the emergency Department today with complaints of vaginal itching and a white discharge for the last 2 weeks. Patient states she has tried Monistat and Flagyl at home with no reduction in her symptoms. She denies any dysuria, increased urinary frequency, or hematuria. Patient denies any abdominal pain, nausea, vomiting, diarrhea, back pain, or fever. She also complains of a red itchy rash to her neck back and chest the last week and a half. She denies any new medications, detergents, perfumes, or environmental exposures. She currently denies any pain. Review of Systems Review of Systems Constitutional: Denies fever or chills [] Eyes: Denies change in visual acuity, redness, or eye pain [] HENT: Denies nasal congestion or sore throat [] Respiratory: Denies cough or shortness of breath [] Cardiovascular: No additional information not addressed in HPI [] GI: Denies abdominal pain, nausea, vomiting, bloody stools or diarrhea [] : Denies dysuria or hematuria; see history of present illness [] Musculoskeletal: Denies back pain or joint pain [] Integument:see history of present illness Neurologic: Denies headache, focal weakness or sensory changes [] Complete systems were reviewed and found to be within normal limits, except as documented in this note. Current Medications Current Medications Current Medications Medications (Trade) Dose Ordered Sig/Laura Start Time Stop Time Status Last Admin Dose Admin Azithromycin (Zithromax) 1,000 mg 1X ONCE 05/08/19 11:30 05/08/19 11:31 DC 05/08/19 11:33 1,000 MG Ceftriaxone Sodium (Rocephin Im) 250 mg 1X ONCE 05/08/19 11:30 05/08/19 11:31 DC 05/08/19 11:33 250 MG Prednisone (Prednisone) 50 mg 1X ONCE 05/08/19 11:30 05/08/19 11:31 DC 05/08/19 11:33 50 MG Allergies Allergies Allergies Coded Allergies Type Severity Reaction Last Updated Verified Sulfa (Sulfonamide Antibiotics) Allergy Intermediate 02/17/19 Yes erythromycin base Allergy Intermediate zithromax ok 02/17/19 Yes fluconazole Allergy Intermediate 02/17/19 Yes tetracycline Allergy Intermediate 02/17/19 Yes codeine Adverse Reaction Intermediate Palpitations 02/17/19 Yes morphine Adverse Reaction Intermediate vomiting 06/10/18 Yes naproxen Adverse Reaction Intermediate "makes my heart hurt" 02/17/19 Yes naproxen sodium Adverse Reaction Intermediate "makes my heart hurt" 02/17/19 Yes Physical Exam Physical Exam Constitutional: Well developed, well nourished, no acute distress, non-toxic appearance. [] HENT: Normocephalic, atraumatic, bilateral external ears normal, nose normal. [] Eyes: PERRLA, conjunctiva normal, no discharge. [] Neck: Normal range of motion, no stridor. [] Lungs & Thorax: Respirations even and unlabored, no retractions, no respiratory distress Pelvic Exam: Inspector Tool present [place] COURTNEY Abdomen: Nontender, soft External Genitalia: Normal Skin Speculum: Normal vaginal mucosa, bloody cervical discharge with white d ischarge also present Bimanual: No adnexal masses or tenderness, CMT Skin: Warm, dry, no erythema; fine, erythemic, maculopapular rash noted to neck, upper back, and chest, consistent with contact allergic dermatitis Extremities: No cyanosis, ROM intact, no edema. [] Neurologic: Alert and oriented X 3, no focal deficits noted. [] Psychologic: Affect normal, judgement normal, mood normal. [] Current Patient Data Vital Signs Vital Signs Date Time Temp Pulse Resp B/P (MAP) Pulse Ox O2 Delivery O2 Flow Rate FiO2 05/08/19 10:42 98.4 96 18 142/88 (106) 96 Room Air 98.4 Lab Values Laboratory Tests Test 05/08/19 10:30 Urine Collection Type Unknown Urine Color Yellow Urine Clarity Clear Urine pH 6.0 Urine Specific [place] 1.025 Urine Protein Negative mg/dL (NEG-TRACE) Urine Glucose (UA) Negative mg/dL (NEG) Urine Ketones (Stick) Negative mg/dL (NEG) Urine Blood Large (NEG) Urine Nitrite Negative (NEG) Urine Bilirubin Negative (NEG) Urine Urobilinogen Dipstick 0.2 mg/dL (0.2 mg/dL) Urine Leukocyte Esterase Trace (NEG) Urine RBC 6-10 /HPF (0-2) Urine WBC 0 /HPF (0-4) Urine Bacteria 0 /HPF (0-FEW) Urine Mucus Marked /LPF Microbiology 05/08/19 Wet Prep - Final, Complete EKG EKG [] Radiology/Procedures Radiology/Procedures [] Course & Med Decision Making Course & Med Decision Making Pertinent Labs and Imaging studies reviewed. (See chart for details) dx: Suspected sexually transmitted infection, bacterial vaginosis Patient was treated prophylactically with 250 mg of IM Rocephin, and 1 g of PO Zithromax. Patient was instructed to avoid having intercourse until the results of gonorrhea and chlamydia testing are available, patient was notified that these results would not be available for 48 hours. If one or both of these tests is positive, patient needs to refrain from intercourse for approximately 1 week following the treatment of any current partners. Prescription written for Flagyl 500 milligrams twice a day �1 week. Patient verbalized an understanding of home care, medications, follow-up, and return to ED instructions and was in agreement with the plan of care. [] Dragon Disclaimer Dragon Disclaimer This electronic medical record was generated, in whole or in part, using a voice recognition dictation system. Departure Departure Impression: Primary Impression: Contact with and (suspected) exposure to infections with a predominantly sexual mode of transmission Additional Impression: Bacterial vaginosis Disposition: HOME, SELF-CARE Condition: STABLE Referrals: Aileen SULLIVAN MD (PCP) Patient Instructions: Sexually Transmitted Disease, [id number] Additional Instructions: Fill the prescription and use as directed. Recommend that you go to your local health department for comprehensive sexually transmitted disease testing. You have been treated for a suspected gonorrhea and chlamydia. Avoid having intercourse until the results of gonorrhea and chlamydia testing are available, these results will not be available for 48 hours. If one or both of these tests is positive, you need to refrain from intercourse for approximately 1 week following the treatment of any current partners. Follow-up with your primary care doctor if symptoms persist, return to ER symptoms worsen. Scripts Metronidazole (FLAGYL) 500 Mg Tablet 1 TAB PO BID for 7 Days, #14 TAB 0 Refills Prov: KARELY JAVED APRN 05/08/19 Problem Qualifiers KARELY JAVED SCRAP BALER May 08, 2019 11:27
[2019-05-08] MEDS ORDERED: AZITHROMYCIN 250 MG TABLET. PO ONE (11:30)
[2019-05-08] MEDS ORDERED: predniSONE 10 MG TABLET PO ONE (11:30)
[2019-05-08] MEDS ORDERED: cefTRIAXone IM 250 MG VIAL IM ONE (11:30)
[2019-05-08] MEDS ORDERED: METR500T PO (11:56)
--- NOTE | 2019-05-08 19:44 | VNOTE ---
CALL BACK NOTE CALL BACK Microbiology 05/08/19 Wet Prep - Final, Complete Patient called about prescription for prednisone. States that she was told she would get a prescription for prednisone for [place] of her rash. I advised patient that a prescription for prednisone 50 mg tablets #4 to begin taking tomorrow would be written and available for her to sheepskin pickler at the triage desk. KARELY JAVED APRN May 08, 2019 19:44
[2019-05-11 17:09] LABS: GC PROBE Negative (Negative)
== END 2019-05-08 12:00 | disposition home or self-care (01) ==
LOC: ER 10:11
DX: N76.0 Acute vaginitis (principal); B96.89 Other specified bacterial agents as the cause of diseases classified elsewhere; Z20.2 Contact with and (suspected) exposure to infections with a predominantly sexual mode of transmission; J45.909 Unspecified asthma, uncomplicated; K21.9 Gastro-esophageal reflux disease without esophagitis; I10 Essential (primary) hypertension; Z98.890 Other specified postprocedural states; Z90.89 Acquired absence of other organs; Z98.51 Tubal ligation status; Z88.2 Allergy status to sulfonamides; Z88.1 Allergy status to other antibiotic agents; Z88.5 Allergy status to narcotic agent; Z88.8 Allergy status to other drugs, medicaments and biological substances
CPT/HCPCS: 81001; 87086; 87491; 87591; 96372; 99284; J0696; J7512; Q0111; Q0144; 87186

== ENCOUNTER 2019-05-19 20:24 | Emergency (ER) | payer SELFPAY ==
[~2019-05-19] VITALS: Ht 175.3 cm; Wt 81.6 kg
[2019-05-19 21:00] VITALS: BP 156/90
[2019-05-19] MEDS ORDERED: DIPHTH,PERTUSS(ACELL),TET TOX 0.5 ML DISP.SYRIN. VAX IM ONE (22:00)
--- NOTE | 2019-05-19 22:14 | PHYS DOC ---
Past Medical History Past Medical History: Anemia, Asthma, GERD, Hypertension Additional Past Medical Histor: endometreosis (KIMBERLEY STEWART APRN) Past Surgical History: , Tonsillectomy, Tubal ligation Additional Past Surgical Histo: hernia, D&c x's 3, Right ankle, left knee (KIMBERLEY STEWART APRN) Alcohol Use: None Drug Use: None (KIMBERLEY STEWART APRN) Adult General Chief Complaint Chief Complaint: FOREIGN BODY HPI HPI Patient is a 48 year old female who presents with patient states she was eating and to a krueger and the metal part of the chair sliver of metal went into her had of her left thumb. Patient rates her pain a 10 out of 10. She states it happened in 1930 today. Patient states she does not know her last tetanus was. (KIMBERLEY STEWART APRN) Review of Systems Review of Systems Constitutional: Denies fever or chills [] Eyes: Denies change in visual acuity, redness, or eye pain [] HENT: Denies nasal congestion or sore throat [] Respiratory: Denies cough or shortness of breath [] Cardiovascular: No additional information not addressed in HPI [] GI: Denies abdominal pain, nausea, vomiting, bloody stools or diarrhea [] : Denies dysuria or hematuria [] Musculoskeletal: Denies back pain or joint pain [] Integument: Thumb puncture wound. Denies rash or skin lesions [] Neurologic: Denies headache, focal weakness or sensory changes [] Endocrine: Denies polyuria or polydipsia [] All other systems were reviewed and found to be within normal limits, except as documented in this note. (KIMBERLEY STEWART APRN) Current Medications Current Medications Current Medications Medications (Trade) Dose Ordered Sig/Laura Start Time Stop Time Status Last Admin Dose Admin Diphtheria/ Tetanus/Acell Pertussis (Boostrix) 0.5 ml ONCE ONCE 05/19/19 22:00 05/19/19 22:01 DC 05/19/19 22:47 0.5 ML (JOSE FRANCISCO MAYERS DO) Allergies Allergies Allergies Coded Allergies Type Severity Reaction Last Updated Verified Sulfa (Sulfonamide Antibiotics) Allergy Intermediate 02/17/19 Yes erythromycin base Allergy Intermediate zithromax ok 02/17/19 Yes fluconazole Allergy Intermediate 02/17/19 Yes tetracycline Allergy Intermediate 02/17/19 Yes codeine Adverse Reaction Intermediate Palpitations 02/17/19 Yes morphine Adverse Reaction Intermediate vomiting 06/10/18 Yes naproxen Adverse Reaction Intermediate "makes my heart hurt" 02/17/19 Yes naproxen sodium Adverse Reaction Intermediate "makes my heart hurt" 02/17/19 Yes (JOSE FRANCISCO MAYERS DO) Physical Exam Physical Exam Constitutional: Well developed, well nourished, no acute distress, non-toxic ap pearance. [] HENT: Normocephalic, atraumatic, bilateral external ears normal, oropharynx moist, no oral exudates, nose normal. [] Eyes: PERRLA, EOMI, conjunctiva normal, no discharge. [] Neck: Normal range of motion, no tenderness, supple, no stridor. [] Cardiovascular:Heart rate regular rhythm, no murmur [] Lungs & Thorax: Bilateral breath sounds clear to auscultation [] Abdomen: Bowel sounds normal, soft, no tenderness, no masses, no pulsatile masses. [] Skin: Pad of thumb puncture. Warm, dry, no erythema, no rash. [] Back: No tenderness, no CVA tenderness. [] Extremities: Pad of thumb tenderness, no cyanosis, no clubbing, ROM intact, no edema. [] Neurologic: Alert and oriented X 3, normal motor function, normal sensory function, no focal deficits noted. [] Psychologic: Affect normal, judgement normal, mood normal. [] (KIMBERLEY STEWART APRN) Current Patient Data Vital Signs Vital Signs Date Time Temp Pulse Resp B/P (MAP) Pulse Ox O2 Delivery O2 Flow Rate FiO2 05/19/19 21:00 99.7 99 16 156/90 (112) 98 Room Air 99.7 (JOSE FRANCISCO MAYERS DO) EKG EKG [] (KIMBERLEY STEWART APRN) Radiology/Procedures Radiology/Procedures [] (KIMBERLEY STEWART APRN) Radiology/Procedures PROCEDURE: HAND RIGHT 3V Examination: HAND RIGHT 3V History: Pain. Injury to the thumb with metal. Comparison/Correlation: None Findings: Total of 3 images of the right hand were obtained. Osteopenia is noted. Interphalangeal joint space narrowing is mildly advanced for age. No acute fracture. Old fifth metacarpal boxer's fracture. No radiopaque foreign body. Soft tissues are unremarkable. Osteopenia suspected. Impression: Degenerative changes are mildly advanced for age. No radiopaque foreign body. Electronically signed by: Yunior Coello MD (05/20/2019 8:02 AM) [facility] (JOSE FRANCISCO MAYERS DO) Course & Med Decision Making Course & Med Decision Making Patient is a 48 year old female who presents with patient states she was eating and to a krueger and the metal part of the chair sliver of metal went into her had of her left thumb. Patient rates her pain a 10 out of 10. She states it happened in 1930 today. Patient states she does not know her last tetanus was. Alert and oriented. Skin pink warm and dry. Speaks in full clear senses. There is a very small puncture wound on the pad of the right thumb where she was poked but I do not see any foreign objects. Was slightly tender with tenderness with palpation. Skin is pink warm and dry there is no signs of infection. Refill less than 3 seconds. Radial pulses strong and palpable. Patient was just here on 05/08 and was treated for sexually transmitted diseases and bacterial vaginosis. Patient is given a tetanus shot. X-ray shows no foreign objects in her thumb. X- ray was read by Dr. Mayers. Upon discharge patient states that she has some redness and itching in her groin areas between her thighs and she was given nystatin triamcinolone cream and would like a refill of medication. I have given the patient a prescription for the medication. (KIMBERLEY STEWART APRN) Dragon Disclaimer Dragon Disclaimer This electronic medical record was generated, in whole or in part, using a voice recognition dictation system. (KIMBERLEY STEWART APRN) Departure Departure Impression: Primary Impression: Thumb pain Disposition: 01 HOME, SELF-CARE Condition: STABLE Referrals: Aileen SULLIVAN MD (PCP) Patient Instructions: Puncture Wound Additional Instructions: Follow-up with primary care provider if needed. Scripts Nystatin/Triamcin (NYSTATIN-TRIAMCINOLONE CREAM) 15 Gm Cream..g. 1 MARIANO TP BID, #30 GM 1 Refill Prov: KIMBERLEY STEWART APRN 05/19/19 Attending Signature Attending Signature I have reviewed the PA/LIFESTYLE DIRECTOR's note and plan of care. I was available for consultation as needed during the patient's visit in the emergency department. I agree with the clinical impression, plan, and disposition. (JOSE FRANCISCO MAYERS DO) Problem Qualifiers Primary Impression: Thumb pain Laterality: right Qualified Codes: M79.644 - Pain in right finger(s) KIMBERLEY STEWART APRN May 19, 2019 22:14 JOSE FRANCISCO MAYERS DO May 21, 2019 07:58
[2019-05-19] MEDS ORDERED: NYST15CR2 TP (22:34)
--- NOTE | 2019-05-20 08:06 | RAD ---
Examination: HAND RIGHT 3V History: Pain. Injury to the thumb with metal. Comparison/Correlation: None Findings: Total of 3 images of the right hand were obtained. Osteopenia is noted. Interphalangeal joint space narrowing is mildly advanced for age. No acute fracture. Old fifth metacarpal boxer's fracture. No radiopaque foreign body. Soft tissues are unremarkable. Osteopenia suspected. Impression: Degenerative changes are mildly advanced for age. No radiopaque foreign body. Electronically signed by: Yunior Coello MD (05/20/2019 8:02 AM) [facility]
== END 2019-05-19 22:40 | disposition home or self-care (01) ==
LOC: ER 20:24
DX: S61.031A Puncture wound without foreign body of right thumb without damage to nail, initial encounter (principal); J45.909 Unspecified asthma, uncomplicated; K21.9 Gastro-esophageal reflux disease without esophagitis; I10 Essential (primary) hypertension; Z98.890 Other specified postprocedural states; Z90.89 Acquired absence of other organs; Z88.2 Allergy status to sulfonamides; Z88.1 Allergy status to other antibiotic agents; Z88.5 Allergy status to narcotic agent; Z88.8 Allergy status to other drugs, medicaments and biological substances; Z98.51 Tubal ligation status; W45.8XXA Other foreign body or object entering through skin, initial encounter; Y93.89 Activity, other specified; Y92.89 Other specified places as the place of occurrence of the external cause; Y99.8 Other external cause status
CPT/HCPCS: 73130; 90471; 90715; 99284

== ENCOUNTER 2019-08-18 11:48 | Emergency (ER) | payer SELFPAY ==
[~2019-08-18 11:48] MED LIST changes: +DOXY-96 PO; -DOXY100T9 PO; +OMEP40CA45; -OMEP40CA5
[2019-08-19] MEDS ORDERED: NYST15CR2 TP (15:21)
[2019-08-19] MEDS ORDERED: METR500T PO (15:21)
== END 2019-08-18 12:15 | disposition left against medical advice (07) ==
LOC: ER 11:48
DX: M25.562 Pain in left knee (principal); Z53.21 Procedure and treatment not carried out due to patient leaving prior to being seen by health care provider

== ENCOUNTER 2019-10-21 12:02 | Emergency (ER) | payer SELFPAY ==
[~2019-10-21] VITALS: Ht 175.3 cm; Wt 81.6 kg
[2019-10-21 12:27] VITALS: BP 157/83
--- NOTE | 2019-10-21 12:39 | PHYS DOC ---
Past Medical History Past Medical History: Anemia, Asthma, GERD, Hypertension Additional Past Medical Histor: endometreosis Past Surgical History: , Tonsillectomy, Tubal ligation Additional Past Surgical Histo: hernia, D&c x's 3, Right ankle, left knee Alcohol Use: None Drug Use: None Adult General Chief Complaint Chief Complaint: SEXUALLY TRANSMITTED DISEASE HPI HPI Patient is a 49 year old Female who presents with states she had unprotected sex 4 days ago. She states she now has vaginal pain and discharge. She also complains of a sore throat. She states that she been she's been having low-grade fevers. She states it is painful to swallow. She rates her discomfort at 8 out of 10. Review of Systems Review of Systems HENT: Denies nasal congestion. sore throat [] : dysuria or denies hematuria [] Integument: Sores on vagina. Denies rash or skin lesions [] All other systems were reviewed and found to be within normal limits, except as documented in this note. Current Medications Current Medications Current Medications Medications (Trade) Dose Ordered Sig/Laura Start Time Stop Time Status Last Admin Dose Admin Azithromycin (Zithromax) 1,000 mg 1X ONCE 10/21/19 12:30 10/21/19 12:35 DC 10/21/19 12:50 1,000 MG Ceftriaxone Sodium (Rocephin Im) 250 mg 1X ONCE 10/21/19 12:30 10/21/19 12:33 DC 10/21/19 12:51 250 MG Dexamethasone (Decadron) 8 mg 1X 10/21/19 12:30 10/21/19 12:50 8 MG Ondansetron HCl (Zofran Odt) 4 mg 1X ONCE 10/21/19 12:30 10/21/19 12:33 DC 10/21/19 12:50 4 MG Allergies Allergies Allergies Coded Allergies Type Severity Reaction Last Updated Verified Sulfa (Sulfonamide Antibiotics) Allergy Intermediate 02/17/19 Yes erythromycin base Allergy Intermediate zithromax ok 02/17/19 Yes fluconazole Allergy Intermediate 02/17/19 Yes tetracycline Allergy Intermediate 02/17/19 Yes codeine Adverse Reaction Intermediate Palpitations 02/17/19 Yes morphine Adverse Reaction Intermediate vomiting 06/10/18 Yes naproxen Adverse Reaction Intermediate "makes my heart hurt" 02/17/19 Yes naproxen sodium Adverse Reaction Intermediate "makes my heart hurt" 02/17/19 Yes Physical Exam Physical Exam Constitutional: Well developed, well nourished, no acute distress, non-toxic appearance. [] HENT: Normocephalic, atraumatic, bilateral external ears normal, oropharynx moist, no oral exudates, nose normal. Throat reddened.[] Eyes: PERRLA, EOMI, conjunctiva normal, no discharge. [] Neck: Normal range of motion, no tenderness, supple, no stridor. [] Cardiovascular:Heart rate regular rhythm, no murmur [] Lungs & Thorax: Bilateral breath sounds clear to auscultation [] Abdomen: Bowel sounds normal, soft, no tenderness, no masses, no pulsatile masses. [] Skin: Vaginal sores. Warm, dry, no erythema, no rash. [] Back: No tenderness, no CVA tenderness. [] Extremities: No tenderness, no cyanosis, no clubbing, ROM intact, no edema. [] Neurologic: Alert and oriented X 3, normal motor function, normal sensory function, no focal deficits noted. [] Psychologic: Affect normal, judgement normal, mood normal. [] Current Patient Data Vital Signs Vital Signs Date Time Temp Pulse Resp B/P (MAP) Pulse Ox O2 Delivery O2 Flow Rate FiO2 10/21/19 12:27 98.6 72 16 157/83 (107) 99 Room Air 98.6 Lab Values Laboratory Tests Test 10/21/19 12:36 10/21/19 12:42 Urine Color Yellow Urine Clarity Clear Urine pH 5.5 Urine Specific [place] 1.015 Urine Protein Negative mg/dL (NEG-TRACE) Urine Glucose (UA) Negative mg/dL (NEG) Urine Ketones (Stick) Negative mg/dL (NEG) Urine Blood Negative (NEG) Urine Nitrite Negative (NEG) Urine Bilirubin Negative (NEG) Urine Urobilinogen Dipstick 0.2 mg/dL (0.2 mg/dL) Urine Leukocyte Esterase Negative (NEG) Urine RBC 0 /HPF (0-2) Urine WBC 1-4 /HPF (0-4) Urine Squamous Epithelial Cells Occ /LPF Urine Bacteria 0 /HPF (0-FEW) Urine Mucus Slight /LPF Group A Streptococcus Rapid Negative (NEGATIVE) POC Urine HCG, Qualitative Hcg negative (Negative) Microbiology 10/21/19 Wet Prep - Final, Complete EKG EKG [] Radiology/Procedures Radiology/Procedures [] Course & Med Decision Making Course & Med Decision Making Patient has a red throat with 1+ without exudates and lymph nodes present. No sores and throat are and mouth. 2 tender red open, non draining sores to the top of vagina on the mucosa. Vital signs normal. Patient states she is also itchy and has gotten a steroid shot in the past and would like another one. No rash to her skin. Alert and oriented. Speaks in full clear sentences. Ambulatory with steady gait. Lungs clear to auscultation all lobes. Patient denies cough, chest pain, shortness of air, abdominal pain, nausea, vomiting or diarrhea, back pain, dizziness, headache, visual changes, numbness or tingling. Patient states she would like to be treated for STDs today. Pelvic Exam: Manager Process Improvement present Abdomen: Nontender External Genitalia: 2 open sores to the top of the vaginal on the mucosa Speculum: Normal vaginal mucosa, White, foul smelling cervical discharge Bimanual: No adnexal masses or tenderness, No CMT Dragon Disclaimer Dragon Disclaimer This electronic medical record was generated, in whole or in part, using a voice recognition dictation system. Departure Departure Impression: Primary Impression: Vaginal discharge Additional Impressions: Contact with and (suspected) exposure to infections with a predominantly sexual mode of transmission Genital sore Bacterial vaginosis Disposition: 01 HOME, SELF-CARE Condition: STABLE Referrals: Aileen SULLIVAN MD (PCP) Patient Instructions: Bacterial Vaginosis, [id number], Genital Herpes, Sexually Transmitted Disease Additional Instructions: Use all medications as directed. Use chloroseptic spray that you can buy off shelf or use Ibuprofen and Tylenol. Scripts Acyclovir (ACYCLOVIR) 400 Mg Tablet 1 TAB PO TID, #21 TAB Prov: KIMBERLEY STEWART APRN 10/21/19 Lidocaine HCl (Lidocaine HCl Viscous) 15 Ml Solution 1 ML MM QID PRN for PAIN, #1 MISC Apply to vaginal sores Prov: KIMBERLEY STEWART APRN 10/21/19 Metronidazole (METRONIDAZOLE) 70 Gm Gel.w.appl 1 APPFUL VG QHS for 5 Days, #70 GM Prov: KIMBERLEY STEWART APRN 10/21/19 Problem Qualifiers KIMBERLEY STEWART APRN Oct 21, 2019 12:39
[2019-10-21] MEDS: ONDANSETRON ODT 4 MG TAB.RAPDIS. PO ONE (12:50)
[2019-10-21] MEDS: AZITHROMYCIN 250 MG TABLET. PO ONE (12:50)
[2019-10-21] MEDS: DEXAMETHASONE 4 MG TABLET PO SCH (12:50)
[2019-10-21] MEDS: cefTRIAXone IM 250 MG VIAL IM ONE (12:51)
[2019-10-21] MEDS ORDERED: LIDO15SO2 MM (12:58)
[2019-10-21] MEDS ORDERED: ACYC400T PO (12:58)
[2019-10-21] MEDS ORDERED: METR70GE2 VG (12:58)
[2019-10-21 13:03] LABS: BILIRUBIN,URINE NEGATIVE (NEG); CLARITY,URINE CLEAR; COLOR,URINE YELLOW; NITRITE,URINE NEGATIVE (NEG); PH,URINE 5.5; PROTEIN,URINE NEGATIVE (NEG-TRACE); UROBILINOGEN,URINE 0.2 mg/dL (0.2 mg/dL)
[2019-10-21 13:16] LABS: BACTERIA,URINE 0 /HPF (0-FEW); RBC,URINE 0 /HPF (0-2); SQUAMOUS EPITHELIAL CELL,UR OCC /LPF
[2019-10-22 20:08] LABS: GC PROBE Negative (Negative)
== END 2019-10-21 13:33 | disposition home or self-care (01) ==
LOC: ER 12:02
DX: N76.0 Acute vaginitis (principal); N76.5 Ulceration of vagina; J45.909 Unspecified asthma, uncomplicated; K21.9 Gastro-esophageal reflux disease without esophagitis; I10 Essential (primary) hypertension; N80.9 Endometriosis, unspecified; Z90.89 Acquired absence of other organs; Z98.51 Tubal ligation status; Z98.890 Other specified postprocedural states; Z88.2 Allergy status to sulfonamides; Z88.1 Allergy status to other antibiotic agents; Z88.5 Allergy status to narcotic agent; Z88.6 Allergy status to analgesic agent
CPT/HCPCS: 36415; 81001; 81025; 87070; 87491; 87591; 87880; 96372; 99284; J0696; J8540; Q0111; Q0144; Q0162

== ENCOUNTER → 2019-11-06 | Emergency (ER) | payer SELFPAY ==
[~2019-11-06] VITALS: Ht 177.8 cm; Wt 82.0 kg
[~2019-11-06] MED LIST changes: +ACYC400T PO; +LIDO15SO2 MM; +METR70GE2 VG
[2019-11-06 18:00] VITALS: BP 149/101
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
== END ==
LOC: ER 17:19
DX: M25.512 Pain in left shoulder (principal); J45.909 Unspecified asthma, uncomplicated; K21.9 Gastro-esophageal reflux disease without esophagitis; I10 Essential (primary) hypertension; Z90.89 Acquired absence of other organs; Z98.51 Tubal ligation status; Z98.890 Other specified postprocedural states; Z88.2 Allergy status to sulfonamides; Z88.1 Allergy status to other antibiotic agents; Z88.6 Allergy status to analgesic agent; Z88.5 Allergy status to narcotic agent
CPT/HCPCS: 99281

== ENCOUNTER 2019-11-23 13:45 | Emergency (ER) | payer SELFPAY ==
[~2019-11-23] VITALS: Ht 167.6 cm; Wt 75.0 kg
[~2019-11-23 13:45] MED LIST changes: -LIDO15SO2 MM; +LIDO20SO10 MM
[2019-11-23] MEDS ORDERED: IV NORMAL SALINE 1000ML BAG 1,000 ML IV ONE (14:30)
[2019-11-23] MEDS ORDERED: ONDANSETRON PF 4 MG/2 ML VIAL. IV ONE (14:30)
[2019-11-23] MEDS ORDERED: ORPHENADRINE CITRATE 60 MG/2 ML VIAL. IM ONE (14:30)
[2019-11-23] MEDS ORDERED: fentaNYL PF VIAL 100 MCG/2 ML VIAL IV ONE (14:30)
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
[2019-11-23 15:13] LABS: BASO # 0.1 x10^3/uL (0.0-0.2); BASO % 1 % (0-3); EOS # 0.3 x10^3/uL (0.0-0.7); EOS % 3 % (0-3); HEMATOCRIT 31.8 % (36.0-47.0); LYMPH # 3.3 x10^3/uL (1.0-4.8); LYMPH % 35 % (24-48); MEAN CORPUSCULAR HEMOGLOBIN 29 pg (25-35); MEAN CORPUSCULAR HGB CONC 35 g/dL (31-37); MEAN CORPUSCULAR VOLUME 83 fL (79-100); MONO # 0.4 x10^3/uL (0.0-1.1); MONO % 4 % (0-9); NEUT # 5.5 x10^3/uL (1.8-7.7); NEUT % 58 % (31-73); PLATELET COUNT 326 x10^3/uL (140-400); RED BLOOD COUNT 3.82 x10^6/uL (3.50-5.40); RED CELL DISTRIBUTION WIDTH 18.3 % (11.5-14.5); WHITE BLOOD COUNT 9.5 x10^3/uL (4.0-11.0)
[2019-11-23 15:38] LABS: CREATININE 0.7 mg/dL (0.6-1.0); GFR 107.6; POTASSIUM 3.2 mmol/L (3.5-5.1)
[2019-11-23 15:44] LABS: ALBUMIN/GLOBULIN RATIO 1.2 (1.0-1.7); TOTAL BILIRUBIN 0.3 mg/dL (0.2-1.0); TOTAL PROTEIN 7.3 g/dL (6.4-8.2)
[2019-11-23] MEDS ORDERED: IOHEXOL 300 MG/ML 100ML VIAL. IV ONE (16:00)
[2019-11-23] MEDS ORDERED: CONTRAST GIVEN. MC PRN (16:00)
[2019-11-23] MEDS ORDERED: POTASSIUM CHLORIDE 20 MEQ TABLET.ER. PO STA (16:12)
[2019-11-23] MEDS ORDERED: fentaNYL PF VIAL 100 MCG/2 ML VIAL IV STA (16:19)
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
--- NOTE | 2019-11-23 17:29 | RAD ---
Single view pelvis, two-view left hip and two-view left femur dated 11/23/2019. No comparison available. CLINICAL INDICATION: Pain after injury. FINDINGS: AP view pelvis shows normal bony alignment. No displaced fracture. Pelvic ring is intact. No acute osseous or articular abnormality. There is contrast material in the urinary bladder and ureters. 2 views left hip show normal bony alignment. No displaced fracture. No acute osseous or articular abnormality. No periostitis or bone destruction. 2 views left femur show normal bony alignment. No displaced fracture. There is mild to moderate degenerative change at the knee joint with postsurgical changes of the proximal tibia. IMPRESSION: No acute radiographic abnormality. Electronically signed by: Domenico Toney MD (11/23/2019 5:26 PM) [id number]
--- NOTE | 2019-11-23 17:30 | RAD ---
3 views of left shoulder dated 11/23/2019. Comparison made to 07/09/2016. CLINICAL INDICATION: Pain after injury. FINDINGS: 3 views left shoulder show normal bony alignment. No displaced fracture. No acute osseous or articular abnormality. Mild to moderate degenerative change of the AC joint. IMPRESSION: No acute findings. Electronically signed by: Domenico Toney MD (11/23/2019 5:27 PM) [id number]
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
[2019-11-23] MEDS ORDERED: ORPH100T PO (17:41)
[2019-11-23] MEDS ORDERED: IBUP-1027 PO (17:41)
[2019-11-23 17:51] VITALS: BP 163/77
== END 2019-11-23 17:56 | disposition home or self-care (01) ==
LOC: ER 13:45
DX: M25.512 Pain in left shoulder (principal); M89.8X5 Other specified disorders of bone, thigh; R51 Headache; R55 Syncope and collapse; R10.2 Pelvic and perineal pain; R10.9 Unspecified abdominal pain; J45.909 Unspecified asthma, uncomplicated; K21.9 Gastro-esophageal reflux disease without esophagitis; I10 Essential (primary) hypertension; F17.200 Nicotine dependence, unspecified, uncomplicated; Z90.89 Acquired absence of other organs; Z98.51 Tubal ligation status; Z98.890 Other specified postprocedural states; Z88.6 Allergy status to analgesic agent; Z88.5 Allergy status to narcotic agent; Z88.2 Allergy status to sulfonamides; Z88.1 Allergy status to other antibiotic agents; Z88.4 Allergy status to anesthetic agent
CPT/HCPCS: 36415; 70450; 71045; 72125; 73030; 73130; 73502; 73552; 74177; 80053; 85025; 96361; 96372; 96374; 96375; 96376; 99285; J2360; J2405; J3010; J7030; Q9967

== ENCOUNTER 2020-07-04 12:24 | Emergency (ER) | payer MEDICAID, OTHER ==
[~2020-07-04] VITALS: Ht 170.2 cm; Wt 72.7 kg
[~2020-07-04 12:24] MED LIST changes: +IBUP-1027 PO; +ORPH100T PO
[2020-07-04 13:25] VITALS: BP 144/91
[2020-07-04] MEDS ORDERED: methylPREDNISolone SOD SUCC PF 125 MG/2 ML VIAL. IM ONE (13:45)
[2020-07-04] MEDS ORDERED: metroNIDAZOLE 500 MG TABLET PO ONE (13:45)
[2020-07-04] MEDS ORDERED: AZITHROMYCIN 250 MG TABLET. PO ONE (13:45)
[2020-07-04] MEDS ORDERED: cefTRIAXone IM 250 MG VIAL IM ONE (13:45)
[2020-07-04] MEDS ORDERED: METH4TAB2 PO (14:34)
[2020-07-04] MEDS ORDERED: NYST15CR2 TP (14:34)
[2020-07-04] MEDS ORDERED: OMEP20CA16 PO (14:34)
--- NOTE | 2020-07-04 14:34 | PHYS DOC ---
Past Medical History Past Medical History: Other Additional Past Medical Histor: endometreosis Past Surgical History: Tubal ligation Additional Past Surgical Histo: hernia, D&c x's 3, Right ankle, left knee Smoking Status: Current Every Day Smoker Alcohol Use: Occasionally Drug Use: None General Adult EDM: Chief Complaint: SEXUALLY TRANSMITTED DISEASE HPI: HPI: Patient is a 49 year old female who presents the ED today requesting STD treatment. Patient is known to this ED for STD exposures and multiple treatments. She does not want to be tested. She iss also requesting a refill for omeprazole, and nystatin/triamcinolone cream. She is also requesting a steroid injection for her chronic rash. Review of Systems: Review of Systems: Constitutional: Denies fever or chills. [] : Request for STD treatment denies dysuria. [] Musculoskeletal: Denies back pain or joint pain. [] Integument: Reports chronic rash Neurologic: Denies headache, focal weakness or sensory changes. [] Psychiatric: Denies depression or anxiety. [] Heart Score: Risk Factors: Risk Factors: DM, Current or recent (<one month) smoker, HTN, HLP, family history of CAD, obesity. Risk Scores: Score 0 - 3: 2.5% MACE over next 6 weeks - Discharge Home Score 4 - 6: 20.3% MACE over next 6 weeks - Admit for Clinical Observation Score 7 - 10: 72.7% MACE over next 6 weeks - Early Invasive Strategies Current Medications: Current Medications Medications (Trade) Dose Ordered Sig/Laura Start Time Stop Time Status Last Admin Dose Admin Azithromycin (Zithromax) 1,000 mg 1X ONCE 07/04/20 13:45 07/04/20 13:46 DC Ceftriaxone Sodium (Rocephin Im) 250 mg 1X ONCE 07/04/20 13:45 07/04/20 13:46 DC Methylprednisolone Sodium Succinate (SOLU-Medrol 125MG VIAL) 125 mg 1X ONCE 07/04/20 13:45 07/04/20 13:46 DC Metronidazole (Flagyl) 2,000 mg 1X ONCE 07/04/20 13:45 07/04/20 13:46 DC Allergies: Allergies: Allergies Coded Allergies Type Severity Reaction Last Updated Verified Sulfa (Sulfonamide Antibiotics) Allergy Intermediate 02/17/19 Yes erythromycin base Allergy Intermediate zithromax ok 02/17/19 Yes fluconazole Allergy Intermediate 02/17/19 Yes tetracycline Allergy Intermediate 02/17/19 Yes codeine Adverse Reaction Intermediate Palpitations 02/17/19 Yes morphine Adverse Reaction Intermediate vomiting 06/10/18 Yes naproxen Adverse Reaction Intermediate "makes my heart hurt" 02/17/19 Yes naproxen sodium Adverse Reaction Intermediate "makes my heart hurt" 02/17/19 Yes Physical Exam: PE: Constitutional: Well developed, well nourished, no acute distress, non-toxic appearance. [] Skin: Warm, dry, no erythema, no rash noted appears to be itching randomly. Back: No tenderness, no CVA tenderness. [] Extremities: No tenderness, no cyanosis, no clubbing, ROM intact, no edema. [] Neurologic: Alert and oriented X 3, normal motor function, normal sensory function, no focal deficits noted. [] Psychologic: Affect normal, judgement normal, mood normal. [] Current Patient Data: Vital Signs: Vital Signs Date Time Temp Pulse Resp B/P (MAP) Pulse Ox O2 Delivery O2 Flow Rate FiO2 07/04/20 13:25 98.7 96 18 144/91 (108) 97 Room Air 98.7 EKG: EKG: [] Radiology/Procedures: Radiology/Procedures: [] Course & Med Decision Making: Course & Med Decision Making Pertinent Labs and Imaging studies reviewed. (See chart for details) This is a 49-year-old female patient presenting to the ED today for STD treatment. Treatment was offered. Discharge to home. Her prescription refills also provided. Education provided. Patient is well-known to this ED for STD treatments and exposures. Dragon Disclaimer: Sylwia Disclaimer: This electronic medical record was generated, in whole or in part, using a voice recognition dictation system. Departure Departure Impression: Primary Impression: Concern about STD in female without diagnosis Additional Impression: Rash Disposition: 01 HOME, SELF-CARE Condition: STABLE Referrals: Aileen SULLIVAN MD (PCP) follow up in 1-2 weeks Patient Instructions: Rash, Sexually Transmitted Disease, [id number] Additional Instructions: You are treated for sexually transmitted diseases. Use protection at all times. Follow-up with your doctor in 1 to 2 weeks Scripts Methylprednisolone (MEDROL) 4 Mg Tab.ds.pk 1 PKG PO UD, #1 PKG Prov: MUTUNGA,JELENA ANIMAL ANATOMY TEACHER 07/04/20 Nystatin/Triamcin (NYSTATIN-TRIAMCINOLONE CREAM) 15 Gm Cream..g. 1 MARIANO TP BID, #30 GM 1 Refill Prov: JELENA FRANCES APRN 07/04/20 Omeprazole (OMEPRAZOLE) 20 Mg Capsule.dr 1 CAP PO DAILY, #90 CAP 3 Refills Prov: JELENA FRANCES APRN 07/04/20 Justicifation of Admission Dx: Justifications for Admission: Justification of Admission Dx: N/A JELENA FRANCES APRN Jul 04, 2020 14:34
== END 2020-07-04 14:43 | disposition home or self-care (01) ==
LOC: ER 12:24
DX: Z20.2 Contact with and (suspected) exposure to infections with a predominantly sexual mode of transmission (principal); R21 Rash and other nonspecific skin eruption; F17.200 Nicotine dependence, unspecified, uncomplicated; Z88.1 Allergy status to other antibiotic agents; Z88.2 Allergy status to sulfonamides; Z88.5 Allergy status to narcotic agent; Z88.8 Allergy status to other drugs, medicaments and biological substances
CPT/HCPCS: 96372; 99284; J0696; J2930

== ENCOUNTER 2020-12-28 13:15 | Emergency (ER) | payer MEDICAID ==
[~2020-12-28] VITALS: Ht 175.3 cm; Wt 82.0 kg
[~2020-12-28 13:15] MED LIST changes: -CLIN150C14 PO; +CLIN150C15 PO; -FLUT100D; +FLUT100D2; +OMEP20CA16 PO
[2020-12-28] MEDS ORDERED: HYDROcodone/APAP 5/325MG 1 TAB TABLET PO ONE (15:30)
[2020-12-28] MEDS ORDERED: predniSONE 20 MG TABLET PO ONE (15:30)
[2020-12-28] MEDS ORDERED: AMOXICILLIN 250 MG CAPSULE. PO ONE (15:30)
--- NOTE | 2020-12-28 15:31 | PHYS DOC ---
Past Medical History Past Medical History: STD, Other Additional Past Medical Histor: endometreosis Past Surgical History: Tubal ligation Additional Past Surgical Histo: hernia, D&c x's 3, Right ankle, left knee Smoking Status: Current Every Day Smoker Alcohol Use: Occasionally Drug Use: None General Adult EDM: Chief Complaint: EYE PROBLEMS HPI: HPI: Patient is a 50 year old female presented to the ED today with multiple complaints. Patient is complaining of rash on the left cheek from seasonal allergies and requesting prednisone. She is also complaining of moderate bilateral ear pain and requesting something for pain. She states she has history of chronic ear infections and would like a prescription for amoxicillin. She is also complaining of a rash on her left upper eyelash where she had artificial eyelashes that she removed causing herself some skin peel. Denies any fever. She states she also has moderate left hip pain but will check in tomorrow for that. Of note this patient called EMS claiming she is 5 to 6 months and requested to be transported to the ED. She arrives in the ED and stated she has to go to the main lobby and talk to her daughters instead of going to OB. She went to the OB floor and told them she lied she is . She is also requesting food Review of Systems: Review of Systems: Constitutional: Denies fever or chills. [] Eyes: Denies change in visual acuity. [] HENT: Reports bilateral ear pain. Denies nasal congestion or sore throat. [] Respiratory: Denies cough or shortness of breath. [] Cardiovascular: Denies chest pain or edema. [] GI: Denies abdominal pain, nausea, vomiting, bloody stools or diarrhea. [] : Denies dysuria. [] Musculoskeletal: Denies back pain or joint pain. [] Integument: Reports left facial rash as well as feeling of the left eyebrow Neurologic: Denies headache, focal weakness or sensory changes. [] Psychiatric: Denies depression or anxiety. [] Heart Score: C/O Chest Pain: N/A Risk Factors: Risk Factors: DM, Current or recent (<one month) smoker, HTN, HLP, family history of CAD, obesity. Risk Scores: Score 0 - 3: 2.5% MACE over next 6 weeks - Discharge Home Score 4 - 6: 20.3% MACE over next 6 weeks - Admit for Clinical Observation Score 7 - 10: 72.7% MACE over next 6 weeks - Early Invasive Strategies Current Medications: Current Medications Medications (Trade) Dose Ordered Sig/[facility] Start Time Stop Time Status Last Admin Dose Admin Acetaminophen/ Hydrocodone Bitart (Lortab 5/325) 1 tab 1X ONCE 12/28/20 15:30 12/28/20 15:31 Amoxicillin (Amoxil) 500 mg 1X ONCE 12/28/20 15:30 12/28/20 15:31 Prednisone (Prednisone) 60 mg 1X ONCE 12/28/20 15:30 12/28/20 15:31 Allergies: Allergies: Allergies Coded Allergies Type Severity Reaction Last Updated Verified Sulfa (Sulfonamide Antibiotics) Allergy Intermediate 02/17/19 Yes erythromycin base Allergy Intermediate zithromax ok 02/17/19 Yes fluconazole Allergy Intermediate 02/17/19 Yes tetracycline Allergy Intermediate 02/17/19 Yes codeine Adverse Reaction Intermediate Palpitations 02/17/19 Yes morphine Adverse Reaction Intermediate vomiting 06/10/18 Yes naproxen Adverse Reaction Intermediate "makes my heart hurt" 02/17/19 Yes naproxen sodium Adverse Reaction Intermediate "makes my heart hurt" 02/17/19 Yes Physical Exam: PE: Constitutional: Well developed, well nourished, no acute distress, non-toxic appearance. [] HENT: Normocephalic, atraumatic, bilateral external ears normal, oropharynx moist, no oral exudates, nose normal. [] Bilateral TM are slightly injected. Eyes: PERRLA, EOMI, conjunctiva normal, no discharge. There is slight bruising to the left upper eyebrow and eyelash area Neck: Normal range of motion, no tenderness, supple, no stridor. [] Cardiovascular:Heart rate regular rhythm, no murmur [] Lungs & Thorax: Bilateral breath sounds clear to auscultation [] Abdomen: Bowel sounds normal, soft, no tenderness, no masses, no pulsatile masses. [] Skin: Trace amount of rash on the left cheek Back: No tenderness, no CVA tenderness. [] Extremities: No tenderness, no cyanosis, no clubbing, ROM intact, no edema. [] Neurologic: Alert and oriented X 3, normal motor function, normal sensory function, no focal deficits noted. [] Psychologic: Affect normal, judgement normal, mood normal. [] Current Patient Data: Vital Signs: Vital Signs Date Time Temp Pulse Resp B/P (MAP) Pulse Ox O2 Delivery O2 Flow Rate FiO2 12/28/20 14:20 97.9 103 20 161/81 (107) 98 Room Air 97.9 EKG: EKG: [] Radiology/Procedures: Radiology/Procedures: [] Course & Med Decision Making: Course & Med Decision Making Pertinent Labs and Imaging studies reviewed. (See chart for details) This is a 50-year-old female patient presented to the ED today with multiple complaints. See HPI. This patient used EMS to get a ride to the hospital lying she is . Patient is complaining of bilateral ear pain-discharge with amoxicillin for otitis media Complaining of a rash on the face-discharged with prednisone Complaining of left eyebrow bruising from fake eye lashes-D/c with erythromycin Complained about left hip pain and stated she will be back tomorrow for xray Requested food which was given to her. Patient well known to this ED. Sylwia Disclaimer: Sylwia Disclaimer: This electronic medical record was generated, in whole or in part, using a voice recognition dictation system. Departure Departure Impression: Primary Impression: Otitis media Qualified Codes: H65.193 - Other acute nonsuppurative otitis media, bilateral Additional Impressions: Contact dermatitis Qualified Codes: L25.9 - Unspecified contact dermatitis, unspecified cause Bruise of eye Qualified Codes: S05.12XA - Contusion of eyeball and orbital tissues, left eye, initial encounter Disposition: 01 [place] HOME SELF CARE/HOMELESS Condition: STABLE Referrals: Aileen SULLIVAN MD (PCP) follow up next week Patient Instructions: Contact Dermatitis, [id number], Otitis Media, Adult, [id number] Additional Instructions: Please use the prescribed medications as ordered. Follow-up with your doctor in 1 to 2 weeks Scripts Erythromycin Base (Erythromycin) 1 Gm Oint...g. 1 MARIANO OP Q4HRS W/A, #1 MISC Please apply 0.5 inch to the affected eye every 4 hours while awake Prov: OMEROAJELENA BIOLOGICAL SCIENCE TECHNICIAN 12/28/20 Amoxicillin (AMOXICILLIN) 500 Mg Tablet 1 TAB PO BID, #20 TAB Prov: MUTUNGA,JELENA BIOLOGICAL SCIENCE TECHNICIAN 12/28/20 Prednisone (PREDNISONE) 20 Mg Tablet 3 TAB PO DAILY, #15 TAB Prov: MUTUNGA,JELENA BIOLOGICAL SCIENCE TECHNICIAN 12/28/20 JELENA FRANCES APRN Dec 28, 2020 15:31
[2020-12-28] MEDS ORDERED: ERYT1OIN6 OP (15:44)
[2020-12-28] MEDS ORDERED: AMOX500T PO (15:44)
[2020-12-28] MEDS ORDERED: PRED20TA PO (15:44)
[2020-12-28 16:00] VITALS: BP 145/63
== END 2020-12-28 16:15 | disposition home or self-care (01) ==
LOC: ER 13:15
DX: O9A.211 Injury, poisoning and certain other consequences of external causes complicating pregnancy, first trimester (principal); S05.12XA Contusion of eyeball and orbital tissues, left eye, initial encounter; H65.193 Other acute nonsuppurative otitis media, bilateral; L25.9 Unspecified contact dermatitis, unspecified cause; M25.552 Pain in left hip; F17.200 Nicotine dependence, unspecified, uncomplicated; Z88.1 Allergy status to other antibiotic agents; Z88.2 Allergy status to sulfonamides; Z88.5 Allergy status to narcotic agent; Z88.8 Allergy status to other drugs, medicaments and biological substances; E66.9 Obesity, unspecified; Z68.26 Body mass index [BMI] 26.0-26.9, adult; Z3A.01 Less than 8 weeks gestation of pregnancy; X58.XXXA Exposure to other specified factors, initial encounter; Y93.89 Activity, other specified; Y92.89 Other specified places as the place of occurrence of the external cause; Y99.8 Other external cause status
CPT/HCPCS: 99284; J7512

== ENCOUNTER 2021-01-02 10:42 | Emergency (ER) | payer MEDICAID ==
[~2021-01-02] VITALS: Ht 177.8 cm; Wt 110.0 kg
[~2021-01-02 10:42] MED LIST changes: +ACYC-12 PO; -ACYC400T PO; +AMOX500T PO; +ERYT1OIN6 OP
[2021-01-02 12:44] VITALS: BP 147/86
[2021-01-02] MEDS ORDERED: cefTRIAXone IM 1 GM VIAL IM ONE (12:45)
[2021-01-02] MEDS ORDERED: metroNIDAZOLE 500 MG TABLET PO ONE (12:45)
[2021-01-02] MEDS ORDERED: predniSONE 20 MG TABLET PO ONE (12:45)
[2021-01-02] MEDS ORDERED: PRED50TA PO (12:54)
[2021-01-02] MEDS ORDERED: FLUC150T PO (12:54)
[2021-01-02] MEDS ORDERED: AMOX1TAB61 PO (12:54)
--- NOTE | 2021-01-02 12:55 | PHYS DOC ---
Past Medical History Past Medical History: Other Additional Past Medical Histor: endometreosis Past Surgical History: Tubal ligation Additional Past Surgical Histo: hernia, D&c x's 3, Right ankle, left knee Smoking Status: Current Every Day Smoker Alcohol Use: Occasionally Drug Use: None General Adult EDM: Chief Complaint: ABSCESS HPI: HPI: Patient is a 50 year old female who presents to the ED today complaining she got bit by a spider on the left cheek 4 days ago. Patient states she was seen at [facility] and was given prescription of doxycycline. She states it is getting worse. Denies any fever, nausea vomiting. She is also requesting STD treatment. Review of Systems: Review of Systems: Constitutional: Denies fever or chills. [] Eyes: Denies change in visual acuity. [] HENT: Denies nasal congestion or sore throat. [] Respiratory: Denies cough or shortness of breath. [] Cardiovascular: Denies chest pain or edema. [] GI: Denies abdominal pain, nausea, vomiting, bloody stools or diarrhea. [] : Reports vaginal discharge and concern for STDs denies dysuria. [] Musculoskeletal: Denies back pain or joint pain. [] Integument: Reports spider bite to the left cheek Neurologic: Denies headache, focal weakness or sensory changes. [] Psychiatric: Denies depression or anxiety. [] Heart Score: C/O Chest Pain: N/A Risk Factors: Risk Factors: DM, Current or recent (<one month) smoker, HTN, HLP, family history of CAD, obesity. Risk Scores: Score 0 - 3: 2.5% MACE over next 6 weeks - Discharge Home Score 4 - 6: 20.3% MACE over next 6 weeks - Admit for Clinical Observation Score 7 - 10: 72.7% MACE over next 6 weeks - Early Invasive Strategies Allergies: Allergies: Allergies Coded Allergies Type Severity Reaction Last Updated Verified Sulfa (Sulfonamide Antibiotics) Allergy Intermediate 02/17/19 Yes erythromycin base Allergy Intermediate zithromax ok 02/17/19 Yes fluconazole Allergy Intermediate 02/17/19 Yes tetracycline Allergy Intermediate 02/17/19 Yes codeine Adverse Reaction Intermediate Palpitations 02/17/19 Yes morphine Adverse Reaction Intermediate vomiting 06/10/18 Yes naproxen Adverse Reaction Intermediate "makes my heart hurt" 02/17/19 Yes naproxen sodium Adverse Reaction Intermediate "makes my heart hurt" 02/17/19 Yes Physical Exam: PE: Constitutional: Well developed, well nourished, no acute distress, non-toxic appearance. [] HENT: Normocephalic, atraumatic, bilateral external ears normal, oropharynx moist, no oral exudates, nose normal. [] Eyes: PERRLA, EOMI, conjunctiva normal, no discharge. [] Neck: Normal range of motion, no tenderness, supple, no stridor. [] Cardiovascular:Heart rate regular rhythm, no murmur [] Lungs & Thorax: Bilateral breath sounds clear to auscultation [] Abdomen: Bowel sounds normal, soft, no tenderness, no masses, no pulsatile masses. [] Skin: Left upper cheek with a scab roughly 0.3 x 0.3 cm with surrounding firmness. There is no fluctuance. There is no erythema to this region. Patient is in edentulous Back: No tenderness, no CVA tenderness. [] Extremities: No tenderness, no cyanosis, no clubbing, ROM intact, no edema. [] Neurologic: Alert and oriented X 3, normal motor function, normal sensory function, no focal deficits noted. [] Psychologic: Flat affect, crying EKG: EK interpreted by Dr. Chaudhry sinus rhythm heart rate 89 no STEMI [] Radiology/Procedures: Radiology/Procedures: [] Course & Med Decision Making: Course & Med Decision Making Pertinent Labs and Imaging studies reviewed. (See chart for details) This is a 50-year-old female patient presented to the ED today with 2 complaints. Patient is complaining of spider bite to the left cheek. She was already seen at [facility] and started on doxycycline 3 days ago. Of note she was in the ED 3 days earlier with other multiple complaints and also called EMS to be brought to the Ed because she is . She stated she needed a ride to the hospital to see her doctors when the medical building. She stated she denied she was to use EMS Her tetanus is up-to-date. She is also requesting STD treatment. She is well-known to this ED for multiple STD related complaints and other complaints. Is also requesting prescription for pain medicine. She was given STD treatment including a shot of Rocephin and 2gms of flagyl. She was encouraged to continue taking doxycycline until it is completed. She continues to have formal prescription sent amoxicillin is completed. I gave her a prescription for Augmentin. Given prednisone to take at home for pain. Of note in the waiting room she started complaining of chest pain when she noted she was not being seen right away. EKG was done which was negative. Sylwia Disclaimer: Sylwia Disclaimer: This electronic medical record was generated, in whole or in part, using a voice recognition dictation system. Departure Departure Impression: Primary Impression: Abscess of left external cheek Additional Impression: Concern about STD in female without diagnosis Disposition: DC HOME SELF CARE/HOMELESS Condition: STABLE Referrals: Aileen SULLIVAN MD (PCP) follow up next week Patient Instructions: Abscess, Sexually Transmitted Diseases-SportsMed Additional Instructions: Please apply warm compresses to the left cheek. Please take the prescribed medications on top of the doxycycline you are ready have. You must finish the doxycycline and the Augmentin. Follow-up with your primary care doctor or the health department for STD concerns Scripts Acyclovir (ZOVIRAX) 5 Gm Cream..g. 1 MARIANO TP 5XDAY, #5 GM 1 Refill Prov: JELENA FRANCES APRN 01/02/21 Fluconazole (DIFLUCAN) 150 Mg Tablet 1 TAB PO ONCE, #1 TAB 1 Refill Take one today and repeat in 7 days Prov: JELENA FRANCES APRN 01/02/21 Prednisone (PREDNISONE) 50 Mg Tablet 1 TAB PO DAILY, #7 TAB Prov: JELENA FRANCES APRN 01/02/21 Amoxicillin/Potassium Clav (AUGMENTIN 875-125 TABLET) 1 Each Tablet 1 TAB PO BID for 10 Days, #20 TAB 0 Refills Prov: JELENA FRANCES APRN 01/02/21 JELENA FRANCES APRN Jan 02, 2021 12:54
[2021-01-02] MEDS ORDERED: ACYC5CRE2 TP (13:10)
--- NOTE | 2021-01-03 04:04 | EKG ---
[facility] [address] [place] [address] Test Date: 2021-01-02 Test Time: 11:51:13 Pat Name: SHERRY MERCER Department: Room: Gender: F Story Writer: : 1970 Requested By: JELENA FRANCES Order Number: [id number] Reading MD: Measurements Intervals [place] Rate: 89 P: 49 [place]: 132 QRS: 27 QRSD: 84 T: 34 QT: 346 QTc: 427 Interpretive Statements SINUS RHYTHM NORMAL ECG RI6.02 No previous ECG available for comparison
--- NOTE | 2021-01-23 13:22 | EKG ---
[facility] [address] [place] [address] Test Date: 2021-01-02 Test Time: 11:51:13 Pat Name: SHERRY MERCER Department: Room: Gender: F Evaluation Advisor: : 1970 Requested By: JELENA FRANCES Order Number: [id number] Reading MD: Measurements Intervals [place] Rate: 89 P: 49 AK: 132 QRS: 27 QRSD: 84 T: 34 QT: 346 QTc: 427 Interpretive Statements SINUS RHYTHM NORMAL ECG RI6.02 Compared to ECG 12/09/2013 11:12:23 No significant changes
== END 2021-01-02 13:15 | disposition home or self-care (01) ==
LOC: ER 10:42
DX: L02.01 Cutaneous abscess of face (principal); F17.200 Nicotine dependence, unspecified, uncomplicated; Z20.2 Contact with and (suspected) exposure to infections with a predominantly sexual mode of transmission; Z98.51 Tubal ligation status; Z98.890 Other specified postprocedural states; Z88.1 Allergy status to other antibiotic agents; Z88.2 Allergy status to sulfonamides; Z88.5 Allergy status to narcotic agent; Z88.6 Allergy status to analgesic agent; Z88.8 Allergy status to other drugs, medicaments and biological substances
CPT/HCPCS: 93005; 96372; 99283; J0696; J7512

== ENCOUNTER 2021-01-20 13:22 | Emergency (ER) | payer MEDICAID ==
[~2021-01-20] VITALS: Ht 175.3 cm; Wt 84.0 kg
[~2021-01-20 13:22] MED LIST changes: -ACYC-12 PO; +ACYC400T PO; +ACYC5CRE2 TP; +AMOX1TAB61 PO
--- NOTE | 2021-01-20 17:04 | PHYS DOC ---
Past Medical History Past Medical History: STD, Other Additional Past Medical Histor: endometreosis Past Surgical History: Tubal ligation Additional Past Surgical Histo: hernia, D&c x's 3, Right ankle, left knee Smoking Status: Current Every Day Smoker Alcohol Use: Occasionally Drug Use: None General Adult EDM: Chief Complaint: ALLERGIES HPI: HPI: Patient is a 50 year old female who presents with states for the last week she has had allergies that are acting up. She states every year around this time she has an allergy flare. She says she has been taking Benadryl and other allergy medicine is not helping. She states she does need another inhaler she does have asthma. Patient is a smoker. States she is very itchy all over and in her throat. She states she is coughing up phlegm. Patient states also while she was outside something flew into her eye and she is unsure of what it was. Patient states the eye is very itchy and feels like something is in the right eye. The right eye is 1+ swollen with conjunctiva is reddened and there is clear drainage and discharge on the eye. She rates her eye pain an 8 out of 10 states it feels like there is something in it and it is burning. Review of Systems: Review of Systems: Constitutional: Denies fever or chills. [] Eyes: Denies change in visual acuity. [] HENT: Denies nasal congestion or sore throat. [] Respiratory: Denies cough or shortness of breath. [] Cardiovascular: Denies chest pain or edema. [] GI: Denies abdominal pain, nausea, vomiting, bloody stools or diarrhea. [] : Denies dysuria. [] Musculoskeletal: Denies back pain or joint pain. [] Integument: Denies rash. [] Neurologic: Denies headache, focal weakness or sensory changes. [] Endocrine: Denies polyuria or polydipsia. [] Lymphatic: Denies swollen glands. [] Psychiatric: Denies depression or anxiety. [] Heart Score: C/O Chest Pain: No Risk Factors: Risk Factors: DM, Current or recent (<one month) smoker, HTN, HLP, family history of CAD, obesity. Risk Scores: Score 0 - 3: 2.5% MACE over next 6 weeks - Discharge Home Score 4 - 6: 20.3% MACE over next 6 weeks - Admit for Clinical Observation Score 7 - 10: 72.7% MACE over next 6 weeks - Early Invasive Strategies Current Medications: Current Medications Medications (Trade) Dose Ordered Sig/Laura Start Time Stop Time Status Last Admin Dose Admin Acetaminophen/ Hydrocodone Bitart (Lortab 5/325) 1 tab 1X ONCE 01/20/21 17:00 01/20/21 17:01 UNV Dexamethasone (Decadron) 10 mg 1X ONCE 01/20/21 17:00 01/20/21 17:01 UNV Fluorescein Sodium (Ful-Meliza) 1 strip 1X ONCE 01/20/21 17:00 01/20/21 17:01 UNV Tetracaine HCl (Tetracaine) 1 drop 1X ONCE 01/20/21 17:00 01/20/21 17:01 UNV Allergies: Allergies: Allergies Coded Allergies Type Severity Reaction Last Updated Verified Sulfa (Sulfonamide Antibiotics) Allergy Intermediate 02/17/19 Yes erythromycin base Allergy Intermediate zithromax ok 02/17/19 Yes fluconazole Allergy Intermediate 02/17/19 Yes tetracycline Allergy Intermediate 02/17/19 Yes codeine Adverse Reaction Intermediate Palpitations 02/17/19 Yes morphine Adverse Reaction Intermediate vomiting 06/10/18 Yes naproxen Adverse Reaction Intermediate "makes my heart hurt" 02/17/19 Yes naproxen sodium Adverse Reaction Intermediate "makes my heart hurt" 02/17/19 Yes Physical Exam: PE: Constitutional: Well developed, well nourished, no acute distress, non-toxic appearance. [] HENT: Normocephalic, atraumatic, bilateral external ears normal, oropharynx moist, no oral exudates, nose normal. Throat is reddened but there is no swelling or exudates. [] Eyes: PERRLA, EOMI, right eye conjunctiva reddened, right eye clear discharge. Right eye 2+ swollen with redness around the skin but no cellulitis. [] Neck: Normal range of motion, no tenderness, supple, no stridor. [] Cardiovascular:Heart rate regular rhythm, no murmur [] Lungs & Thorax: Bilateral breath sounds clear to auscultation [] Abdomen: Bowel sounds normal, soft, no tenderness, no masses, no pulsatile masses. [] Skin: Warm, dry, no erythema, no rash. [] Back: No tenderness, no CVA tenderness. [] Extremities: No tenderness, no cyanosis, no clubbing, ROM intact, no edema. [] Neurologic: Alert and oriented X 3, normal motor function, normal sensory function, no focal deficits noted. [] Psychologic: Affect normal, judgement normal, mood normal. [] Current Patient Data: Vital Signs: Vital Signs Date Time Temp Pulse Resp B/P (MAP) Pulse Ox O2 Delivery O2 Flow Rate FiO2 01/20/21 13:45 98.7 105 16 106/88 (94) 97 Room Air 98.7 EKG: EKG: [] Radiology/Procedures: Radiology/Procedures: [] Impression: [facility] [address] [place], [place] [id number] IMAGING REPORT Signed PATIENT: SHERRY MERCER ACCOUNT: [id number] : 1970 LOCATION: ER AGE: 50 SEX: F EXAM STATUS: REG ER ORD. PHYSICIAN: KIMBERLEY STEWART APRN REASON: COUGH PROCEDURE: PORTABLE CHEST 1V XR CHEST 1V Clinical History: Reason: COUGH / Spl. Instructions: / History: Technique: AP view of the chest was obtained at 01/20/2021 4:45 PM. Comparison: November 23, 2019. Findings: The cardiomediastinal silhouette is normal. The pulmonary vasculature is normal. There is subtle reticular opacities in the lower lungs. Impression: Mild infiltrates suggesting atypical pneumonia. Electronically signed by: Dottie Thapa III, MD (01/20/2021 5:28 PM) [facility] DICTATED and SIGNED BY: DOTTIE THAPA III, MD DATE: 01/20/21 [id number] 0 Course & Med Decision Making: Course & Med Decision Making Pertinent Labs and Imaging studies reviewed. (See chart for details) COVID-19 CRITERIA: The patient was evaluated during the global COVID-19 pand emic, and that diagnosis was suspected/considered upon their initial presentation. Their evaluation, treatment and testing was consistent with current guidelines for patients who present with complaints or symptoms that may be related to COVID-19. See HPI. Alert and oriented x4. Ambulatory with a steady gait. Speaks in full clear sentences. Lungs are clear to auscultation all lobes. Throat is reddened but there is no exudates or swelling. Right eye is swollen and reddened there is no periorbital cellulitis. Left eye is also 1+ swollen. But there is no redness to the right. Patient has a dry cough. No respiratory distress. Skin pink warm and dry. Vital signs are within normal limits. Patient is asking for hydrocodone for pain. Patient states that she can see of the eye it is slightly blurry and a little light sensitive but she can see out of the eye. No extraocular eye motion pain. Patient is given Pepcid, Benadryl, dexamethasone, hydrocodone, albuterol treatment in the ED. Patient denies chest pain, shortness of breath, dizziness, headache, syncope, fever, urinary symptoms, back pain, neck pain. Patient is refusing blood work, IV azithromycin and Rocephin start her on pneumonia treatment. I have spoken to Dr. Delarosa about this and she states that the patient can be discharged and can go home taking her p.o. medication. Patient is educated that without blood work I cannot properly treat her and I cannot tell how sick she actually is. I also told her that getting the IV antibiotics would help jumpstart her treatment on getting her pneumonia treated. Patient states that she will take an IV but will not let me do blood work. Eye Exam Visual accuity: N/A Eye exam: PERRL, Extraocular muscles intact. No signs of ruptured globe. Sclera clear. Red reflex present. Foreign body: No foreign bodies seen with examination or with lid flip exam. Jameson-pen: N/A Fluorescein test: Right sided corneal abrasion. Anesthetic: Tetracaine Chest x-ray shows pneumonia. Patient is given azithromycin and Rocephin in the ED. She is also given 1 L of normal saline. [] Dragon Disclaimer: Dragon Disclaimer: This electronic medical record was generated, in whole or in part, using a voice recognition dictation system. COVID-19 Patient Risks: Age 65 or older: No Sign of co-morbidity: Yes Exp to person + for COVID: No Exp to PUI: No Travel from affected area: No Lower respiratory symptoms: Yes Fever: No Other: No PPE Use: Full PPE with N95 mask or PAPR: Yes Departure Departure Impression: Primary Impression: Cough Additional Impressions: Conjunctivitis Qualified Codes: H10.31 - Unspecified acute conjunctivitis, right eye Pneumonia Qualified Codes: J18.9 - Pneumonia, unspecified organism Person under investigation for COVID-19 Disposition: 01 DC HOME SELF CARE/HOMELESS Condition: STABLE Referrals: Aileen SULLIVAN MD (PCP) Patient Instructions: Allergic Conjunctivitis, Allergies, Generic, Cough, Adul t, Pneumonia, Adult Additional Instructions: Follow-up with primary care provider soon as possible. Take medication as prescribed and with food. Use ibuprofen or Tylenol for your pain. Use a warm compress over your eye. Take allergy medicine daily. Scripts Tobramycin/Dexamethasone (TOBRADEX EYE OINTMENT) 3.5 Gm Oint...g. 1 MARIANO RIGHTEYE TID for 10 Days, #3.5 GM Prov: KIMBERLEY STEWART APRN 01/20/21 Methylprednisolone (MEDROL) 4 Mg Tab.ds.pk 1 PKG PO UD, #1 PKG Prov: KIMBERLEY STEWART APRN 01/20/21 Albuterol Sulfate (PROAIR HFA INHALER) 8.5 Gm Hfa.aer.ad 1 PUFF INH PRN Q6HRS PRN for SHORTNESS OF BREATH, #1 EACH 0 Refills Prov: KIMBERLEY STEWART APRN 01/20/21 Azithromycin (AZITHROMYCIN TABLET) 250 Mg Tablet 1 PKG PO UD for 5 Days, #6 TAB 0 Refills 2 the first day followed by 1 for days 2-5 Prov: KIMBERLEY STEWART APRN 01/20/21 KIMBERLEY STEWART APRN Jan 20, 2021 17:04
[2021-01-20] MEDS: DEXAMETHASONE 4 MG TABLET PO ONE (17:13)
[2021-01-20] MEDS: FAMOTIDINE 20 MG TABLET. PO ONE (17:13)
[2021-01-20] MEDS: diphenhydrAMINE HCL 25 MG CAPSULE PO ONE (17:13)
[2021-01-20] MEDS: TETRACAINE 0.5% OPHTH SOLUTION 4ML BOTTLE. OD ONE (17:14)
[2021-01-20] MEDS: HYDROcodone/APAP 5/325MG 1 TAB TABLET PO ONE (17:14)
[2021-01-20] MEDS: FLUORESCEIN OPHTH TEST STRIP. OD ONE (17:14)
[2021-01-20] MEDS: ALBUTEROL SULFATE 2.5 MG/3 ML NEBU. NEB ONE (17:24)
--- NOTE | 2021-01-20 17:30 | RAD ---
XR CHEST 1V Clinical History: Reason: COUGH / Spl. Instructions: / History: Technique: AP view of the chest was obtained at 01/20/2021 4:45 PM. Comparison: November 23, 2019. Findings: The cardiomediastinal silhouette is normal. The pulmonary vasculature is normal. There is subtle reti cular opacities in the lower lungs. Impression: Mild infiltrates suggesting atypical pneumonia. Electronically signed by: Edilberto Arroyo III, MD (01/20/2021 5:28 PM) [facility]
[2021-01-20] MEDS ORDERED: ALBU2.5V8 INH (17:42)
[2021-01-20] MEDS ORDERED: METH4TAB2 PO (17:42)
[2021-01-20] MEDS ORDERED: AZIT250T6 PO (17:42)
[2021-01-20] MEDS: AZITHRMYCN 500MG IVPB FOR OMNI 250 ML IV ONE (18:15)
[2021-01-20] MEDS: IV NORMAL SALINE 1000ML BAG 1,000 ML IV ONE (18:15)
[2021-01-20] MEDS: cefTRIAXone IV Push 1 GM VIAL. IVP ONE (18:15)
[2021-01-20] MEDS ORDERED: TOBR3.5O2 RIGHTEYE (18:17)
[2021-01-20] MEDS: AZITHROMYCIN 250 MG TABLET. PO ONE (18:39)
[2021-01-20] MEDS: cefTRIAXone IM 500 MG VIAL. IM ONE (18:40)
[2021-01-20 18:58] VITALS: BP 184/96
== END 2021-01-20 19:15 | disposition home or self-care (01) ==
LOC: ER 13:22
DX: J18.9 Pneumonia, unspecified organism (principal); H10.31 Unspecified acute conjunctivitis, right eye; Z20.822 Contact with and (suspected) exposure to COVID-19; R05 Cough; R60.0 Localized edema; F17.200 Nicotine dependence, unspecified, uncomplicated; Z98.51 Tubal ligation status; Z98.890 Other specified postprocedural states; Z88.2 Allergy status to sulfonamides; Z88.1 Allergy status to other antibiotic agents; Z88.5 Allergy status to narcotic agent; Z88.8 Allergy status to other drugs, medicaments and biological substances
CPT/HCPCS: 71045; 94640; 96372; 99285; J0696; J7613; Q0163

== ENCOUNTER 2021-04-10 12:13 | Emergency (ER) | payer MEDICAID ==
[~2021-04-10] VITALS: Ht 175.3 cm; Wt 72.0 kg
[~2021-04-10 12:13] MED LIST changes: +ACYC-12 PO; -ACYC400T PO; +AZIT250T6 PO; +MICO45CR VG; -MICO45CR3 VG; -OMEP40CA45; +OMEP40CA7; +TOBR3.5O2 RIGHTEYE
[2021-04-10 12:46] VITALS: BP 157/84
--- NOTE | 2021-04-10 13:45 | RAD ---
EXAM: Left knee, 3 views; left forearm, 2 views; left elbow, 3 views; right shoulder, 3 views. HISTORY: Pain. Fall. COMPARISON: 08/19/2019. FINDINGS: Left knee: 3 views of the left knee are obtained. There is internal fixation of a proximal tibial fra cture with a lateral plate and multiple screws. There is severe medial compartment predominant joint space narrowing with subchondral sclerosis, spurring and bony remodeling. There is genu varus. There is a mildly displaced fracture of the inferior aspect of the patella with approximately 2 mm displace ment along the fracture line. There is a trace joint effusion. Right shoulder: 3 views of the right shoulder obtained. There is no acute fracture, dislocation or pablo bluxation. There are degenerative changes involving the cervical spine, not formally assessed on this exam. Left forearm and elbow: 2 views of the lentiform and 3 views of the left elbow are obtained. There is an elbow effusion. There is a suspected minimally displaced fracture of the radial head/neck. IMPRESSION: 1. Minimally displaced inferior left patellar fracture and left renal head/neck fracture. There is no associated left elbow effusion and trace left knee joint fluid. 2. Severe medial compartment predominant osteoarthritis of the left knee with genu varus and bony rem odeling. There is internal fixation of a healed proximal tibial fracture. 3. No acute finding involving the right shoulder. Electronically signed by: Nai Burkett MD (04/10/2021 1:42 PM) [id number]
[2021-04-10] MEDS ORDERED: IBUPROFEN 400 MG TABLET. PO ONE (14:00)
[2021-04-10] MEDS ORDERED: HYDROcodone/APAP 7.5/325MG 1 TAB TABLET PO ONE (14:15)
--- NOTE | 2021-04-10 14:23 | RAD ---
AP chest. HISTORY: Cough with sputum production AP view was taken of the chest. There is no pleural effusion. Heart is within normal limits in size. There is linear scarring or atelectasis along the left heart border. No other acute infiltrates are n oted. IMPRESSION: 1. Left base linear scarring or atelectasis. 2. No other acute infiltrates. Electronically signed by: Renny Tellez MD (04/10/2021 2:20 PM) [id number]
--- NOTE | 2021-04-10 14:40 | ED.ADGEN ---
Past Medical History Past Medical History: STD, Other Additional Past Medical Histor: endometreosis Past Surgical History: Tubal ligation Additional Past Surgical Histo: hernia, D&c x's 3, Right ankle, left knee Smoking Status: Current Every Day Smoker Alcohol Use: Occasionally Drug Use: None General Adult EDM: Chief Complaint: MECHANICAL FALL HPI: HPI: Patient is a 50 year old AA female who presents emergency department with complaints of pain to her left elbow, left knee, and right shoulder after trip and fall last night. Patient states that she did not see a blanket on the floor and she tripped on it causing her to fall. She denies any head injury, neck, back, or abdominal pain. Patient states she has had a cough for the last week with white to yellow sputum produced. She denies any fever, headache, chills, chest pain, palpitations, dizziness, or syncope. Patient states her chest does feel tight like she cannot take a deep breath at times but denies any wheezing. She currently denies any shortness of breath. Patient currently rates her pain a 9 out of 10 on the pain scale, she denies any alleviating factors, pain is worse with palpation and movement of the affected areas. Patient also requests a refill of her nystatin triamcinolone cream. She states she has had a vaginal itching, she denies any irregular vaginal discharge, vaginal odor, or concerns of sexually transmitted infection. Review of Systems: Review of Systems: Complete ROS is negative unless otherwise noted in HPI. Current Medications: Current Medications Medications (Trade) Dose Ordered Sig/Laura Start Time Stop Time Status Last Admin Dose Admin Acetaminophen/ Hydrocodone Bitart (Lortab 7.5/325) 1 tab 1X ONCE 04/10/21 14:15 04/10/21 14:16 DC 04/10/21 14:23 1 TAB Dexamethasone Sodium Phosphate (Decadron) 10 mg 1X ONCE 04/10/21 15:15 04/10/21 15:16 DC 04/10/21 15:15 10 MG Ibuprofen (Motrin) 800 mg 1X ONCE 04/10/21 14:00 04/10/21 14:02 DC Allergies: Allergies: Allergies Coded Allergies Type Severity Reaction Last Updated Verified Sulfa (Sulfonamide Antibiotics) Allergy Intermediate 02/17/19 Yes erythromycin base Allergy Intermediate zithromax ok 02/17/19 Yes fluconazole Allergy Intermediate 02/17/19 Yes tetracycline Allergy Intermediate 02/17/19 Yes codeine Adverse Reaction Intermediate Palpitations 02/17/19 Yes morphine Adverse Reaction Intermediate vomiting 06/10/18 Yes naproxen Adverse Reaction Intermediate "makes my heart hurt" 02/17/19 Yes naproxen sodium Adverse Reaction Intermediate "makes my heart hurt" 02/17/19 Yes Physical Exam: PE: See Above Constitutional: Well developed, well nourished, no acute distress, non-toxic appearance. [] HENT: Normocephalic, atraumatic, bilateral external ears normal, nose normal. [] Eyes: PERRLA, EOMI, conjunctiva normal, no discharge. [] Neck: Normal range of motion, no stridor. [] Cardiovascular:Heart rate regular rhythm Lungs & Thorax: Respirations even and unlabored, no retractions, no respiratory distress Abdomen: soft, no tenderness Skin: Warm, dry, no erythema, no rash. [] Extremities: Left elbow: : Lateral tenderness patient without crepitus or obvious deformity, 1+ edema, sensation intact, 2+ radial pulse, no cyanosis, ROM intact Left knee: Anterior tenderness to palpation deformity or crepitus, 2+ edema, no cyanosis, ROM limited due to pain Right shoulder: Nontender, sensation intact, no cyanosis, ROM intact, no edema. [] Neurologic: Alert and oriented X 3, no focal deficits noted. [] Psychologic: Affect normal, judgement normal, mood normal. [] Current Patient Data: Vital Signs: Vital Signs Date Time Temp Pulse Resp B/P (MAP) Pulse Ox O2 Delivery O2 Flow Rate FiO2 04/10/21 12:46 98.6 109 12 157/84 (108) 94 Room Air 98.6 EKG: EKG: [] Heart Score: C/O Chest Pain: No Radiology/Procedures: Radiology/Procedures: PROCEDURE: PORTABLE CHEST 1V AP chest. HISTORY: Cough with sputum production AP view was taken of the chest. There is no pleural effusion. Heart is within normal limits in size. There is linear scarring or atelectasis along the left heart border. No other acute infiltrates are noted. IMPRESSION: 1. Left base linear scarring or atelectasis. 2. No other acute infiltrates. Electronically signed by: Renny Tellez MD (04/10/2021 2:20 PM) [id number] PROCEDURE: SHOULDER 2+V RIGHT EXAM: Left knee, 3 views; left forearm, 2 views; left elbow, 3 views; right shoulder, 3 views. HISTORY: Pain. Fall. COMPARISON: 08/19/2019. FINDINGS: Left knee: 3 views of the left knee are obtained. There is internal fixation of a proximal tibial fracture with a lateral plate and multiple screws. There is severe medial compartment predominant joint space narrowing with subchondral sclerosis, spurring and bony remodeling. There is genu varus. There is a mildly displaced fracture of the inferior aspect of the patella with approximately 2 mm displacement along the fracture line. There is a trace joint effusion. Right shoulder: 3 views of the right shoulder obtained. There is no acute fracture, dislocation or subluxation. There are degenerative changes involving the cervical spine, not formally assessed on this exam. Left forearm and elbow: 2 views of the lentiform and 3 views of the left elbow are obtained. There is an elbow effusion. There is a suspected minimally displaced fracture of the radial head/neck. IMPRESSION: 1. Minimally displaced inferior left patellar fracture and left renal head/neck fracture. There is no associated left elbow effusion and trace left knee joint fluid. 2. Severe medial compartment predominant osteoarthritis of the left knee with genu varus and bony remodeling. There is internal fixation of a healed proximal tibial fracture. 3. No acute finding involving the right shoulder. Electronically signed by: Nai Burkett MD (04/10/2021 1:42 PM) [id number] [] Course & Med Decision Making: Course & Med Decision Making Pertinent Labs and Imaging studies reviewed. (See chart for details) [id number] with Dr. Hernandez about the left radial head fracture and a left patella fracture. His recommendation is to place patient in a sling for the radial head fracture and immobilize knee with a knee immobilizer. Patient is to be weight bearing as tolerated. Will prescribe pain medication and instruct patient to follow-up with him in office. Patient was placed in sling by nursing staff, she refused the knee immobilizer. Patient verbalized an understanding of home care, medications, follow-up, and return to ED instructions and was in agreement with the plan of care. [] Dragon Disclaimer: Dragon Disclaimer: This electronic medical record was generated, in whole or in part, using a voice recognition dictation system. Departure Departure Impression: Primary Impression: Left patella fracture Additional Impressions: Left radial head fracture Fall Cough Vaginal itching Disposition: 01 HOME / SELF CARE / HOMELESS Condition: STABLE Referrals: Aileen SULLIVAN MD (PCP) DYLAN HERNANDEZ MD Patient Instructions: Cough, Adult, [id number], Patellar Fracture, Adult, Radial Head Fracture, [id number] Additional Instructions: Fill prescription(s) and use as directed. Recommend application of ice, elevation, and rest of affected extremity. Wear the sling and knee immobilizer that was placed until follow up appointment with Dr. Hernandez, weightbearing as tolerated. Increase clear fluids. Avoid airway triggers such as smoke, fragrance, dust, and pollen. May take [id number]-[id number]-etyekki cough suppressants as needed. Follow-up with your primary care doctor in 1-2 days, return to the ER if symptoms worsen or fever develops. Scripts Methylprednisolone (MEDROL) 4 Mg Tab.ds.pk 1 PKG PO UD for 6 Days, #1 PKG 0 Refills START TAKING ON 04/11/21 Prov: KARELY JAVED AUTOMATIC DRY STARCH OPERATOR 04/10/21 Nystatin/Triamcin (NYSTATIN-TRIAMCINOLONE CREAM) 15 Gm Cream..g. 1 MARIANO TP BID PRN for ITCHING, #15 GM 1 Refill Prov: KARELY JAVED AUTOMATIC DRY STARCH OPERATOR 04/10/21 Hydrocodone Bit/Acetaminophen (HYDROCODONE-APAP 5-325 ) 1 Tab Tablet 1 TAB PO PRN Q6HRS PRN for PAIN for 5 Days, #20 TAB 0 Refills Prov: KARELY JAVED AUTOMATIC DRY STARCH OPERATOR 04/10/21 Splinting Splinting : Location: [facility] [place] Pre-Made Type: velcro (Sling) Pre-Proc Neuro Vasc Exam: normal Post-Proc Neuro Vasc Exam: normal, unchanged from pre-exam Problem Qualifiers Primary Impression: Left patella fracture Encounter type: initial encounter Fracture type: closed Fracture morphology: unspecified fracture morphology Fracture alignment: displaced Qualified Codes: S82.002A - Unspecified fracture of left patella, initial encounter for closed fracture Additional Impressions: Left radial head fracture Encounter type: initial encounter Fracture type: closed Fracture alignment: nondisplaced Qualified Codes: S52.125A - Nondisplaced fracture of head of left radius, initial encounter for closed fracture Fall Encounter type: initial encounter Qualified Codes: W19.XXXA - Unspecified fall, initial encounter KARELY JAVED AUTOMATIC DRY STARCH OPERATOR Apr 10, 2021 14:40
[2021-04-10] MEDS ORDERED: HYDR-2761 PO (15:01)
[2021-04-10] MEDS ORDERED: NYST15CR2 TP (15:01)
[2021-04-10] MEDS ORDERED: METH4TAB2 PO (15:12)
[2021-04-10] MEDS ORDERED: DEXAMETHASONE SOD PHOS 20 MG/5 ML VIAL. PO ONE (15:15)
== END 2021-04-10 15:53 | disposition home or self-care (01) ==
LOC: ER 12:13
DX: S52.125A Nondisplaced fracture of head of left radius, initial encounter for closed fracture (principal); S82.002A Unspecified fracture of left patella, initial encounter for closed fracture; R05 Cough; L29.9 Pruritus, unspecified; F17.200 Nicotine dependence, unspecified, uncomplicated; Z88.2 Allergy status to sulfonamides; Z88.1 Allergy status to other antibiotic agents; Z88.5 Allergy status to narcotic agent; Z88.8 Allergy status to other drugs, medicaments and biological substances; W01.0XXA Fall on same level from slipping, tripping and stumbling without subsequent striking against object, initial encounter; Y93.89 Activity, other specified; Y92.89 Other specified places as the place of occurrence of the external cause; Y99.8 Other external cause status
CPT/HCPCS: 71045; 73030; 73080; 73090; 73562; 99284; A4565; J1100

== ENCOUNTER 2021-08-21 12:51 | Emergency (ER) | payer MEDICAID ==
[~2021-08-21 12:51] MED LIST changes: -CLIN150C15 PO; +CLIN150C16 PO; +CYCL10TA19; -CYCL10TA2; +HYDR-2761 PO
== END 2021-08-21 14:13 | disposition left against medical advice (07) ==
LOC: ER 12:51
DX: H57.9 Unspecified disorder of eye and adnexa (principal); N89.8 Other specified noninflammatory disorders of vagina; Z53.21 Procedure and treatment not carried out due to patient leaving prior to being seen by health care provider

== ENCOUNTER 2022-03-13 09:00 | Emergency (ER) | payer MEDICAID ==
[~2022-03-13] VITALS: Ht 175.3 cm; Wt 73.3 kg
[2022-03-13] MEDS ORDERED: cefTRIAXone IM 500 MG VIAL. IM ONE (09:30)
[2022-03-13] MEDS ORDERED: methylPREDNISolone SOD SUCC PF 125 MG/2 ML VIAL. IM ONE (09:30)
[2022-03-13] MEDS ORDERED: METH4TAB2 PO (09:35)
[2022-03-13] MEDS ORDERED: METR-34 PO (09:35)
--- NOTE | 2022-03-13 09:36 | PHYS DOC ---
Past Medical History Past Medical History: STD, Other Additional Past Medical Histor: endometreosis Past Surgical History: Tubal ligation Additional Past Surgical Histo: hernia, D&c x's 3, Right ankle, left knee Smoking Status: Current Every Day Smoker Alcohol Use: Occasionally Drug Use: None General Adult EDM: Chief Complaint: SKIN RASH/ABSCESS HPI: HPI: Patient is a 51 year old female who presents with had intercourse with her boyfriend who came up positive last week with gonorrhea. She states that she has had foul-smelling vaginal discharge. She states also every year she has allergies and breaks out in a generalized itchy rash all over her body. She would like prednisone for that today also. History of drug-seeking, smoking, endometriosis, STD, urinary incontinence, hernia surgery, D&C x3. Review of Systems: Review of Systems: Constitutional: Denies fever or chills. [] Eyes: Denies change in visual acuity. [] HENT: Denies nasal congestion or sore throat. [] Respiratory: Denies cough or shortness of breath. [] Cardiovascular: Denies chest pain or edema. [] GI: Denies abdominal pain, nausea, vomiting, bloody stools or diarrhea. [] : Denies dysuria. + Vaginal discharge. + Concern for STD [] Musculoskeletal: Denies back pain or joint pain. [] Integument: Generalized itchy rash. [] Neurologic: Denies headache, focal weakness or sensory changes. [] Endocrine: Denies polyuria or polydipsia. [] Lymphatic: Denies swollen glands. [] Psychiatric: Denies depression or anxiety. [] Heart Score: C/O Chest Pain: No Current Medications: Current Medications Medications (Trade) Dose Ordered Sig/Laura Start Time Stop Time Status Last Admin Dose Admin Ceftriaxone Sodium (Rocephin Im) 500 mg 1X ONCE 03/13/22 09:30 03/13/22 09:31 UNV Methylprednisolone Sodium Succinate (SOLU-Medrol 125MG VIAL) 125 mg 1X ONCE 03/13/22 09:30 03/13/22 09:31 UNV Allergies: Allergies: Allergies Coded Allergies Type Severity Reaction Last Updated Verified Sulfa (Sulfonamide Antibiotics) Allergy Intermediate 02/17/19 Yes erythromycin base Allergy Intermediate zithromax ok 02/17/19 Yes fluconazole Allergy Intermediate 02/17/19 Yes tetracycline Allergy Intermediate 02/17/19 Yes codeine Adverse Reaction Intermediate Palpitations 02/17/19 Yes morphine Adverse Reaction Intermediate vomiting 06/10/18 Yes naproxen Adverse Reaction Intermediate "makes my heart hurt" 02/17/19 Yes naproxen sodium Adverse Reaction Intermediate "makes my heart hurt" 02/17/19 Yes Physical Exam: PE: Constitutional: Well developed, well nourished, no acute distress, non-toxic appearance. [] HENT: Normocephalic, atraumatic, bilateral external ears normal, oropharynx moist, no oral exudates, nose normal. [] Eyes: PERRLA, EOMI, conjunctiva normal, no discharge. [] Neck: Normal range of motion, no tenderness, supple, no stridor. [] Cardiovascular:Heart rate regular rhythm, no murmur [] Lungs & Thorax: Bilateral breath sounds clear to auscultation [] Abdomen: Bowel sounds normal, soft, no tenderness, no masses, no pulsatile masses. [] Skin: Warm, dry, no erythema, a very fine generalized rash to her arms and legs. [] Back: No tenderness, no CVA tenderness. [] Extremities: No tenderness, no cyanosis, no clubbing, ROM intact, no edema. [] Neurologic: Alert and oriented X 3, normal motor function, normal sensory function, no focal deficits noted. [] Psychologic: Affect normal, judgement normal, mood normal. [] EKG: EKG: [] Radiology/Procedures: Radiology/Procedures: [] Course & Med Decision Making: Course & Med Decision Making Pertinent Labs and Imaging studies reviewed. (See chart for details) See HPI. Alert and oriented x4. Ambulatory steady gait. Speaks in full clear sentences. A very fine generalized rash to arms and legs I had to run my hands over to feel. Patient states she is itchy. She states she gets this every year. I gave her a shot of Solu-Medrol and she is asked for. She states she is taking allergy medications [id number] 2. She is also treated for gonorrhea and I will give azithromycin for chlamydia treatment. Patient allergic to tetracyclines. Patient already urinated in the waiting room and is unable at this time to give us any urine for urinalysis. Pelvic Exam: Baseball Pitcher present Abdomen: Nontender External Genitalia: Normal Skin Speculum: Normal vaginal mucosa, normal cervical discharge Bimanual: No adnexal masses or tenderness, No CMT 1012: Patient states she still unable to urinate after she was given something to drink and food. She states that she needs to leave because something is going on with her kids and she needs to catch the bus. [] Sylwia Disclaimer: Sylwia Disclaimer: This electronic medical record was generated, in whole or in part, using a voice recognition dictation system. Departure Departure Impression: Primary Impression: Contact with and (suspected) exposure to infections with a predominantly sex ual mode of transmission Additional Impressions: Contact dermatitis Qualified Codes: L23.9 - Allergic contact dermatitis, unspecified cause Bacterial vaginosis Disposition: HOME / SELF CARE / HOMELESS Condition: STABLE Referrals: Aileen SULLIVAN MD (PCP) Patient Instructions: Allergies, Generic, Bacterial Vaginosis, Rash, Sexually Transmitted Disease Additional Instructions: Take medication as prescribed and with food. Drink plenty of fluids to stay hydrated. Follow-up with a paid search manager or your primary care physician this week. Do not have sexual intercourse until it has been 10 days post treatment. Scripts Metronidazole (METRONIDAZOLE) 500 Mg Tablet 1 TAB PO BID for 7 Days, #14 TAB 0 Refills Prov: KIMBERLEY STEWART APRN 03/13/22 Methylprednisolone (MEDROL) 4 Mg Tab.ds.pk 1 PKG PO UD, #1 PKG Prov: KIMBERLEY STEWART APRN 03/13/22 KIMBERLEY STEWART APRN March 13, 2022 09:36
[2022-03-13] MEDS ORDERED: AZITHROMYCIN 250 MG TABLET. PO ONE (09:45)
[2022-03-13 10:17] VITALS: BP 138/85
[2022-03-14 21:08] LABS: GC PROBE Negative (Negative)
== END 2022-03-13 10:17 | disposition home or self-care (01) ==
LOC: ER 09:00
DX: Z20.2 Contact with and (suspected) exposure to infections with a predominantly sexual mode of transmission (principal); L23.9 Allergic contact dermatitis, unspecified cause; N76.0 Acute vaginitis; B96.89 Other specified bacterial agents as the cause of diseases classified elsewhere; F17.200 Nicotine dependence, unspecified, uncomplicated; Z88.2 Allergy status to sulfonamides; Z88.1 Allergy status to other antibiotic agents; Z88.5 Allergy status to narcotic agent; Z88.8 Allergy status to other drugs, medicaments and biological substances
CPT/HCPCS: 87491; 87591; 96372; 99284; J0696; J2930; Q0111